=== PATIENT | female | born 1940 | race Caucasian/White ===

== ENCOUNTER 2021-11-05 11:27 | Outpatient (CLI) | payer MEDICARE, SELFPAY ==
[2021-11-05 17:48] LABS: Free T4 Free Thyroxine* 1.08 ng/dL (0.70-1.85)
== END 2021-11-05 11:28 | disposition home or self-care (01) ==
PROVIDERS: PCP Family Medicine; Visit Provider Family Medicine
DX: E03.9 Hypothyroidism, unspecified (principal); I10 Essential (primary) hypertension; E55.9 Vitamin D deficiency, unspecified
CPT/HCPCS: 84439; 84443

== ENCOUNTER 2022-03-10 22:28 | Outpatient (CLI) | payer MEDICARE, SELFPAY ==
--- OUTSIDE RECORDS SUMMARY | 2022-03-24 16:50 | XMS_ITS | Clinical Summary ---
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
== END 2022-03-10 22:29 | disposition home or self-care (01) ==
LOC: AMB 03-24 16:43
PROVIDERS: PCP Family Medicine; Visit Provider Family Medicine
DX: R42 Dizziness and giddiness (principal); R53.83 Other fatigue
CPT/HCPCS: A0425; A0427

== ENCOUNTER 2022-03-10 23:00 | Observation (INO) | payer MEDICARE, SELFPAY ==
[2022-03-10 23:12] VITALS: BP 156/74; PULSE 74; RESP 18; TEMP 35.9; O2SAT 98; BMI 23.4
--- NOTE | 2022-03-10 23:23 | ED_ITS ---
HPI - Nausea/Vomiting/Diarrhea General Time Seen by Provider: 23:23 <Blaire Knowles MD - Last Filed: 03/10/22 23:53> Date Seen: 03/10/22 <Blaire Knowles MD - Last Filed: 03/10/22 23:53> Chief complaint: Nausea/Vomiting <Blaire Knowles MD - Last Filed: 03/10/22 23:53> Stated complaint: Nausea, Vomiting <Blaire Knowles MD - Last Filed: 03/10/22 23:53> Time Seen by Provider: 03/10/22 23:23 <Blaire Knowles MD - Last Filed: 03/10/22 23:53> Source: patient, RN notes reviewed and old records reviewed <Blaire Knowles MD - Last Filed: 03/10/22 23:53> Mode of arrival: EMS <Blaire Knowles MD - Last Filed: 03/10/22 23:53> Limitations: no limitations <Blaire Knowles MD - Last Filed: 03/10/22 23:53> History of Present Illness HPI Narrative: Patient is a very pleasant 82-year-old female with a history of hypertension, hypothyroidism and COPD who comes to the emergency room via EMS after having experiences sudden onset of what she describes as dizziness at approximately 2000 hours. This was associated with nausea and vomiting P Patient notes that she has been dealing with illness since MondayMarch 05. At that time she has had been experiencing which she describes is a very bad stomach ache and her abdomen feeling like it was very firm and hard. She had no associated vomiting at that time She actually describes difficulty with her abdomen over many months where she felt like her belly was bigger than what it should be after having decreased her normal Synthroid intake. She states she feels like she has a basketball and she has never had that before. She does think she has gained some weight. She is now back to her normal dose of 100 mcg but her abdomen still feels like it is bigger than it should be. She actually knew notes that the stomach ache that she describes is very bad on 03 05 has actually improved. He notes that even when she would pass gas she had belly pain. She did not have any vomiting at that time nor did she diarrhea. She usually has constipation and takes MiraLax for that. She does note however that while her stomach was causing her problems whenever she would stand up she would experience what she describes as ?wooziness?. She notes that when she would stand she felt like she was near fainting. Sitting however was okay but moving increase this feeling. She notes that she took 2 Pepto-Bismol bottles over the past few days in her belly has much improved. However on Monday03/08/22 she began experiencing an infection in her left upper gum line. She has had this before and is requesting that we Pedrito this area. She is not experiencing any fever or chills. She was supposed to see the dentist tomorrow morning. Patient notes that tonight her wooziness was suddenly described as dizziness and the room was moving around her. Patient does describe vertigo. She notes no chest pain cough or shortness of breath during this time. She notes that she had in knew she would not be able to walk. She denies weakness in legs or arms but states because of the dizziness she asked her to call the ambulance. Patient currently takes 1 Cristi aspirin every 3 hours for discomfort. She quit using tobacco and alcohol 4 years ago. No recent trauma. <Blaire Knowles MD - Last Filed: 03/10/22 23:53> Associated nausea: Yes <Blaire Knowles MD - Last Filed: 03/10/22 23:53> Related Data Home medications: Previous Rx's Medication Instructions Recorded levothyroxine 100 mcg capsule 100 mcg PO .QOD #45 caps 11/10/21 <Blaire Knowles MD - Last Filed: 03/10/22 23:53> Allergies/Adverse reactions: Allergies Allergy/AdvReac Type Severity Reaction Status Date / Time No Known Allergies Allergy Verified 03/11/22 00:38 <Blaire Knowles MD - Last Filed: 03/10/22 23:53> Review of Systems Status of ROS: Reports: 10 or more systems reviewed and unremarkable except as noted in History and below <Blaire Knowles MD - Last Filed: 03/10/22 23:53> Const: Reports: change in weight (Possibly weight gain); Denies: fever, chills or fatigue <Blaire Knowles MD - Last Filed: 03/10/22 23:53> Eyes: Denies: blurry vision or seeing flashes <Blaire Knowles MD - Last Filed: 03/10/22 23:53> ENMT: Reports: mouth pain (Left upper gumline) and vertigo; Denies: throat pain, neck pain or difficulty swallowing <Blaire Knowles MD - Last Filed: 03/10/22 23:53> Cardio: Denies: chest pain or shortness of breath with exertion <Blaire Knowles MD - Last Filed: 03/10/22 23:53> Resp: Denies: shortness of breath or cough <Blaire Knowles MD - Last Filed: 03/10/22 23:53> GI: Reports: abdominal pain (Now improving), nausea, vomiting and constipation (Chronic); Denies: diarrhea or difficulty swallowing <Blaire Knowles MD - Last Filed: 03/10/22 23:53> : Denies: painful urination or urinary frequency <Blaire Knowles MD - Last Filed: 03/10/22 23:53> Musculo: Denies: back pain or neck pain <Blaire Knowles MD - Last Filed: 03/10/22 23:53> Integ/Breast: Denies: rash <Blaire Knowles MD - Last Filed: 03/10/22 23:53> Neuro: Reports: dizziness and vertigo; Denies: headache, numbness in extremities or weakness in extremities <Blaire Knowles MD - Last Filed: 03/10/22 23:53> Endo: Denies: fatigue <Blaire Knowles MD - Last Filed: 03/10/22 23:53> [facility]: Surgical History Status post appendectomy Status post cataract extraction Status post hysterectomy with oophorectomy <Blaire Knowles MD - Last Filed: 03/10/22 23:53> Social History: Social History Narrative: alcohol abuse Smoking Status: Former smoker What tobacco products do you use: cigarettes Smoking quit date/years: <= 15 years ago How often do you have a drink containing alcohol: never AUDIT-C Alcohol total score: 0 Non-prescribed substance use: denies use <Blaire Knowles MD - Last Filed: 03/10/22 23:53> Exam Narrative: Exam Narrative: Sole is a very pleasant elderly female in no acute distress. Her eyes are clear. Her pupils are small at 1 mm but EOM is full. Visual reynolds intact. Face is some symmetrical in terms of eyebrow raise smile. Speech is normal. She has increased fullness over the left of frontal sinus with some mild not we ll-demarcated erythema. Oral cavity shows moist mucous membranes. E superior gumline on the left shows some fluctuance that is tender to the touch. No current draining. Positive for left anterior cervical lymphadenopathy. Nontender. Heart with regular rate and rhythm and lungs are clear. Abdomen is soft there is some protrude parents but the belly is nontender. No masses palpated. Lower extremities without edema. Romberg is negative fine motor skills intact NIHSS scale 0 I did have patient sit up and she was able to do that but again became very symptomatic with room spinning and return of nausea. No nystagmus of the pupils. I was unable to do Hallpike maneuver given patient's significant symptoms just sitting up. <Blaire Knowles MD - Last Filed: 03/10/22 23:53> Const: Vital Signs, click to edit/add: Vital Signs - 24 hr 03/10/22 23:12 Temperature 96.6 F L Pulse Rate [Pulse Oximeter] 74 Respiratory Rate 18 Blood Pressure [Ri ght Upper Arm] 156/74 H Pulse Oximetry 98 Oxygen Delivery Me thod Room Air <Blaire Knowles MD - Last Filed: 03/10/22 23:53> Vital Signs, click to edit/add: Vital Signs - 24 hr 03/10/22 23:12 Temperature 96.6 F L Pulse Rate [Pulse Oximeter] 74 Respiratory Rate 18 Blood Pressure [Ri ght Upper Arm] 156/74 H Pulse Oximetry 98 Oxygen Delivery Me thod Room Air <Allen Jansen MD - Last Filed: 03/11/22 01:35> Documenting provider has reviewed patient's vital signs: yes <Blaire Knowles MD - Last Filed: 03/10/22 23:53> Course Course Hospital Course: Patient presents with a myriad of symptoms starting on 03/05/2022. Initially abdominal pain without fever or vomiting that started to improve. Patient then had the onset of upper gum swelling with what appears to be abscess and now this evening a sudden onset of vertigo associated with vomiting at 2000 hours. <Blaire Knowles MD - Last Filed: 03/10/22 23:53> Reevaluation(s) Reevaluation #1: Accepted in sign-out from Dr. Lake. Patient's primary complaint today is vertigo. Disposition when sitting up, no other neurologic deficits, no headache or head injury. CT scan of the head personally reviewed and interpreted by me does not demonstrate any acute intracranial pathology. Patient is given meclizine to help with symptoms. She also had some abdominal pain and bloating about a week ago that is now resolved. On exam she has no abdominal tenderness, no vomiting or diarrhea. Finally she does have some swelling of the upper gum with possible periapical abscess. <Allen Jansen MD - Last Filed: 03/11/22 01:35> Time: 00:36 <Allen Jansen MD - Last Filed: 03/11/22 01:35> Reevaluation #2: Incision and drainage of left upper periabscess with large amount of purulent drainage. Patient will be started on Zosyn in the emergency department. Labs reviewed, white blood cell count is normal, mild anemia, the basic panel reassuring, normal CRP. Will call hospitalist for admission. I personally reviewed the CT scan of the head which does not demonstrate any acute intracranial findings, personally reviewed CT scan of the facial bones which does not show any acute fracture, there is air and fluid along the left mandible consistent with the clinical abscess that is already been drained. <Allen Jansen MD - Last Filed: 03/11/22 01:35> Time: 00:59 <Allen Jansen MD - Last Filed: 03/11/22 01:35> Reevaluation #3: Patient recheck, dizziness is improved. She still has no resting dizziness, only when she sits up and she describes as room spinning accompanied by nausea. Due to continued positional vertigo, infected patient lives independently with her spouse, will be admitted for symptom management further evaluation. IV Zosyn was given for her periapical abscess. She was complaining of abdominal pain last week but that is resolved, abdomen without tenderness, LFTs, lipase, and white blood cell count are all within normal limits. No further evaluation at this time. <Allen Jansen MD - Last Filed: 03/11/22 01:35> Time: 01:24 <Allen Jansen MD - Last Filed: 03/11/22 01:35> Additional Reevaluation(s): 1:34 a.m. care discussed with [facility] for admission. <Allen Jansen MD - Last Filed: 03/11/22 01:35> Vital Signs Vital signs: Initial Vital Signs Temperature 96.6 F L 03/10/22 23:12 Temperature Source Temporal Artery Scan 03/10/22 23:12 Pulse Rate 74 03/10/22 23:12 Respiratory Rate 18 03/10/22 23:12 Blood Pressure 156/74 H 03/10/22 23:12 Blood Pressure Mean 101 03/10/22 23:12 Blood Pressure Position Semi-Fowlers 03/10/22 23:12 Pulse Oximetry 98 03/10/22 23:12 Oxygen Delivery Method 03/10/22 23:12 Vital Signs Temperature 96.6 F L 03/10/22 23:12 Pulse Rate 74 03/10/22 23:12 Respiratory Rate 18 03/10/22 23:12 Blood Pressure 156/74 H 03/10/22 23:12 Pulse Oximetry 98 03/10/22 23:12 Oxygen Delivery Method 03/10/22 23:12 Temperature 96.6 F L 03/10/22 23:12 Pulse Rate 74 03/10/22 23:12 Respiratory Rate 18 03/10/22 23:12 Blood Pressure 156/74 H 03/10/22 23:12 Pulse Oximetry 98 03/10/22 23:12 Oxygen Delivery Method 03/10/22 23:12 <Blaire Knowles MD - Last Filed: 03/10/22 23:53> Initial Vital Signs Temperature 96.6 F L 03/10/22 23:12 Temperature Source Temporal Artery Scan 03/10/22 23:12 Pulse Rate 74 03/10/22 23:12 Respiratory Rate 18 03/10/22 23:12 Blood Pressure 156/74 H 03/10/22 23:12 Blood Pressure Mean 101 03/10/22 23:12 Blood Pressure Position Semi-Fowlers 03/10/22 23:12 Pulse Oximetry 98 03/10/22 23:12 Oxygen Delivery Method 03/10/22 23:12 Vital Signs Temperature 96.6 F L 03/10/22 23:12 Pulse Rate 74 03/10/22 23:12 Respiratory Rate 18 03/10/22 23:12 Blood Pressure 156/74 H 03/10/22 23:12 Pulse Oximetry 98 03/10/22 23:12 Oxygen Delivery Method 03/10/22 23:12 Temperature 96.6 F L 03/10/22 23:12 Pulse Rate 74 03/10/22 23:12 Respiratory Rate 18 03/10/22 23:12 Blood Pressure 156/74 H 03/10/22 23:12 Pulse Oximetry 98 03/10/22 23:12 Oxygen Delivery Method 03/10/22 23:12 <Allen Jansen MD - Last Filed: 03/11/22 01:35> MDM - Nausea/Vomiting/Diarrhea MDM Narrative Medical decision making narrative: 1. Dental abscess 2. Vertigo 3. Abdominal pain 4. Disposition- <Blaire Knowles MD - Last Filed: 03/10/22 23:53> 1. Dental abscess 2. Vertigo <Allen Jansen MD - Last Filed: 03/11/22 01:35> Medical Records Attestation: I reviewed the patient's medical records. <Blaire Knowles MD - Last Filed: 03/10/22 23:53> Lab Data Attestation: I reviewed the patient's lab results. <Blaire Knowles MD - Last Filed: 03/10/22 23:53> Labs: Lab Results 03/10/22 03/10/22 03/10/22 Range/Units 23:49 23:49 23:49 WBC 7.95 (4.50-11.00) K/uL RBC 3.75 L (4.00-5.20) m/uL Hgb 11.2 L (12.0-16.0) gm/dL Hct 34.4 (33.0-51.0) % MCV 92 (80-100) fL MCH 30 (26-34) pg MCHC 33 (32-36) gm/dL RDW Coeff of Nida 14.2 (11.5-15.5) % Plt Count 341 (140-440) K/uL Neut % (Auto) 71.7 (42.0-72.0) % Lymph % (Auto) 16.5 L (20-44) % Harnett % (Auto) 7.7 (0.0-11.0) % Eos % (Auto) 3.4 (0.0-7.0) % Baso % (Auto) 0.4 (0.0-3.0) % Neut # (Auto) 5.71 (1.7-7.0) K/uL Lymph # (Auto) 1.30 (0.90-2.90) K/uL Harnett # (Auto) 0.60 (0.00-0.90) K/UL Eos # (Auto) 0.27 (0.00-0.50) K/uL Baso # (Auto) 0.03 (0.00-0.30) K/uL Abs Immat Gran (auto) 0.02 (0.00-0.30) K/uL Imm/Tot Granulo (auto) 0.3 % Sodium 142 (135-149) mmol/L Potassium 3.6 (3.6-5.1) mmol/L Chloride 111 (96-114) mmol/L Carbon Dioxide 23 (20-32) mmol/L BUN 13 (7-30) mg/dL Creatinine 0.9 (0.5-1.5) mg/dL Estimated Creat Clear 41.30 Estimated GFR 64 ml/min Glucose 103 (60-115) mg/dL Calcium 8.5 (8.4-10.6) mg/dL Magnesium 2.1 (1.5-2.6) mg/dL Total Bilirubin 0.3 (0.1-1.5) mg/dL AST 22 (12-35) U/L ALT 12 (4-35) U/L Alkaline Phosphatase 79 (40-150) U/L C-Reactive Protein 6.3 H (0.5-1.0) mg/dL Total Protein 6.9 (6.0-8.3) g/dL Albumin 3.5 (3.3-5.0) g/dL SARS-CoV-2 (PCR) (Negative) Influenza Type A (PCR) (Negative) Influenza Type B (PCR) (Negative) POC Troponin I 0.00 L (0.01-0.04) ng/ml 03/11/22 Range/Units 00:20 WBC (4.50-11.00) K/uL RBC (4.00-5.20) m/uL Hgb (12.0-16.0) gm/dL Hct (33.0-51.0) % MCV (80-100) fL MCH (26-34) pg MCHC (32-36) gm/dL RDW Coeff of Nida (11.5-15.5) % Plt Count (140-440) K/uL Neut % (Auto) (42.0-72.0) % Lymph % (Auto) (20-44) % Harnett % (Auto) (0.0-11.0) % Eos % (Auto) (0.0-7.0) % Baso % (Auto) (0.0-3.0) % Neut # (Auto) (1.7-7.0) K/uL Lymph # (Auto) (0.90-2.90) K/uL Harnett # (Auto) (0.00-0.90) K/UL Eos # (Auto) (0.00-0.50) K/uL Baso # (Auto) (0.00-0.30) K/uL Abs Immat Gran (auto) (0.00-0.30) K/uL Imm/Tot Granulo (auto) % Sodium (135-149) mmol/L Potassium (3.6-5.1) mmol/L Chloride (96-114) mmol/L Carbon Dioxide (20-32) mmol/L BUN (7-30) mg/dL Creatinine (0.5-1.5) mg/dL Estimated Creat Clear Estimated GFR ml/min Glucose (60-115) mg/dL Calcium (8.4-10.6) mg/dL Magnesium (1.5-2.6) mg/dL Total Bilirubin (0.1-1.5) mg/dL AST (12-35) U/L ALT (4-35) U/L Alkaline Phosphatase (40-150) U/L C-Reactive Protein (0.5-1.0) mg/dL Total Protein (6.0-8.3) g/dL Albumin (3.3-5.0) g/dL SARS-CoV-2 (PCR) Negative SARS-CoV-2 (Negative) Influenza Type A (PCR) Negative PCR FLU A (Negative) Influenza Type B (PCR) Negative PCR FLU B (Negative) POC Troponin I (0.01-0.04) ng/ml <Blaire Knowles MD - Last Filed: 03/10/22 23:53> Lab Results 03/10/22 03/10/22 03/10/22 Range/Units 23:49 23:49 23:49 WBC 7.95 (4.50-11.00) K/uL RBC 3.75 L (4.00-5.20) m/uL Hgb 11.2 L (12.0-16.0) gm/dL Hct 34.4 (33.0-51.0) % MCV 92 (80-100) fL MCH 30 (26-34) pg MCHC 33 (32-36) gm/dL RDW Coeff of Nida 14.2 (11.5-15.5) % Plt Count 341 (140-440) K/uL Neut % (Auto) 71.7 (42.0-72.0) % Lymph % (Auto) 16.5 L (20-44) % Harnett % (Auto) 7.7 (0.0-11.0) % Eos % (Auto) 3.4 (0.0-7.0) % Baso % (Auto) 0.4 (0.0-3.0) % Neut # (Auto) 5.71 (1.7-7.0) K/uL Lymph # (Auto) 1.30 (0.90-2.90) K/uL Harnett # (Auto) 0.60 (0.00-0.90) K/UL Eos # (Auto) 0.27 (0.00-0.50) K/uL Baso # (Auto) 0.03 (0.00-0.30) K/uL Abs Immat Gran (auto) 0.02 (0.00-0.30) K/uL Imm/Tot Granulo (auto) 0.3 % Sodium 142 (135-149) mmol/L Potassium 3.6 (3.6-5.1) mmol/L Chloride 111 (96-114) mmol/L Carbon Dioxide 23 (20-32) mmol/L BUN 13 (7-30) mg/dL Creatinine 0.9 (0.5-1.5) mg/dL Estimated Creat Clear 41.30 Estimated GFR 64 ml/min Glucose 103 (60-115) mg/dL Calcium 8.5 (8.4-10.6) mg/dL Magnesium 2.1 (1.5-2.6) mg/dL Total Bilirubin 0.3 (0.1-1.5) mg/dL AST 22 (12-35) U/L ALT 12 (4-35) U/L Alkaline Phosphatase 79 (40-150) U/L C-Reactive Protein 6.3 H (0.5-1.0) mg/dL Total Protein 6.9 (6.0-8.3) g/dL Albumin 3.5 (3.3-5.0) g/dL SARS-CoV-2 (PCR) (Negative) Influenza Type A (PCR) (Negative) Influenza Type B (PCR) (Negative) POC Troponin I 0.00 L (0.01-0.04) ng/ml 03/11/22 Range/Units 00:20 WBC (4.50-11.00) K/uL RBC (4.00-5.20) m/uL Hgb (12.0-16.0) gm/dL Hct (33.0-51.0) % MCV (80-100) fL MCH (26-34) pg MCHC (32-36) gm/dL RDW Coeff of Nida (11.5-15.5) % Plt Count (140-440) K/uL Neut % (Auto) (42.0-72.0) % Lymph % (Auto) (20-44) % Harnett % (Auto) (0.0-11.0) % Eos % (Auto) (0.0-7.0) % Baso % (Auto) (0.0-3.0) % Neut # (Auto) (1.7-7.0) K/uL Lymph # (Auto) (0.90-2.90) K/uL Harnett # (Auto) (0.00-0.90) K/UL Eos # (Auto) (0.00-0.50) K/uL Baso # (Auto) (0.00-0.30) K/uL Abs Immat Gran (auto) (0.00-0.30) K/uL Imm/Tot Granulo (auto) % Sodium (135-149) mmol/L Potassium (3.6-5.1) mmol/L Chloride (96-114) mmol/L Carbon Dioxide (20-32) mmol/L BUN (7-30) mg/dL Creatinine (0.5-1.5) mg/dL Estimated Creat Clear Estimated GFR ml/min Glucose (60-115) mg/dL Calcium (8.4-10.6) mg/dL Magnesium (1.5-2.6) mg/dL Total Bilirubin (0.1-1.5) mg/dL AST (12-35) U/L ALT (4-35) U/L Alkaline Phosphatase (40-150) U/L C-Reactive Protein (0.5-1.0) mg/dL Total Protein (6.0-8.3) g/dL Albumin (3.3-5.0) g/dL SARS-CoV-2 (PCR) Negative SARS-CoV-2 (Negative) Influenza Type A (PCR) Negative PCR FLU A (Negative) Influenza Type B (PCR) Negative PCR FLU B (Negative) POC Troponin I (0.01-0.04) ng/ml <Allen Jansen MD - Last Filed: 03/11/22 01:35> Imaging Data CT scan - head: Attestation: I have reviewed the pertinent imaging results. <Allen Jansen MD - Last Filed: 03/11/22 01:35> My impression: No acute intracranial findings, air-fluid level of the left anterior maxilla concerning for abscess <Allen Jansen MD - Last Filed: 03/11/22 01:35> Radiologist's impression: IMPRESSION: 1. No acute intracranial findings. 2. Cortical disruption of the left anterior maxilla adjacent to periapical thickening of a small portion of a residual tooth. There is a small amount of air and fluid lateral to the maxilla. This could represent a small abscess. Recommend CT face with IV contrast for further evaluation. <Allen Jansen MD - Last Filed: 03/11/22 01:35> ECG Data Attestation: I personally reviewed and interpreted this ECG as follows: <Allen Jansen MD - Last Filed: 03/11/22 01:35> ECG interpretation date: 03/11/22 <Allen Jansen MD - Last Filed: 03/11/22 01:35> ECG interpretation time: 00:20 <Allen Jansen MD - Last Filed: 03/11/22 01:35> Prior ECG tracings: not available for review <Allen Jansen MD - Last Filed: 03/11/22 01:35> Interpretation: Sinus rhythm rate 84, incomplete right bundle-branch block, no acute ST elevations or depressions, normal intervals, normal axis, HI 150. No prior for comparison. <Allen Jansen MD - Last Filed: 03/11/22 01:35> Discharge Plan Discharge Clinical Impression: Abscess, periapical, Vertigo, Chronic obstructive pulmonary disease <Blaire Knowles MD - Last Filed: 03/10/22 23:53> Patient Disposition: Admitted As Inpatient <Blaire Knowles MD - Last Filed: 03/10/22 23:53> Procedures I/D Type: abscess Details: simple <Allen Jansen MD - Last Filed: 03/11/22 01:35> Site: other (Periapical) <Allen Jansen MD - Last Filed: 03/11/22 01:35> Pre procedure diagnosis: Periapical abscess tooth 12. <Allen Jansen MD - Last Filed: 03/11/22 01:35> Post procedure diagnosis: Same <Allen Jansen MD - Last Filed: 03/11/22 01:35> Site marking: not applicable <Allen Jansen MD - Last Filed: 03/11/22 01:35> Verification/time out: correct patient and correct site <Allen Jansen MD - Last Filed: 03/11/22 01:35> Name of person performing procedure: Allen Jansen <Allen Jansen MD - Last Filed: 03/11/22 01:35> Local Anesthetic: lidocaine 1% and with epi <Allen Jansen MD - Last Filed: 03/11/22 01:35> Amount of anesthesia used (mL): 1 <Allen Jansen MD - Last Filed: 03/11/22 01:35> Technique: incised with #11 blade (Large amount of purulent drainage expressed) <Allen Jansen MD - Last Filed: 03/11/22 01:35> Irrigation: No <Allen Jansen MD - Last Filed: 03/11/22 01:35> Packing used?: none <Allen Jansen MD - Last Filed: 03/11/22 01:35> Estimated blood loss (if any): none <Allen Jansen MD - Last Filed: 03/11/22 01:35> Conclusion: patient tolerated procedure (Immediate improvement in her facial pain) <Allen Jansen MD - Last Filed: 03/11/22 01:35>
--- NOTE | 2022-03-10 23:40 | CRLHL7_ITS ---
For Patients: As a result of the Cures Act, medical imaging exams and procedure reports are released immediately into your electronic medical record. You may view this report before your referring provider. If you have questions, please contact your health care provider. INDICATION: Left upper gum swelling and dizziness TECHNIQUE: CT maxillofacial without contrast. COMPARISON: None FINDINGS: Facial bones: There is periapical lucency involving teeth 20. 5, 27 23, 22, and 20. There is mandibular erosion involving the 3 left teeth with periapical lucencies. Adjacent to tooth 20., There is a small amount of fluid and air. Orbits and globes: Unremarkable. Sinuses: Near complete opacification and wall thickening of the right maxillary sinus. Mucosal thickening of the left maxillary sinus. Soft tissues: Unremarkable. IMPRESSION: Several sites of periapical lucency involving the mandible. Cortical erosion of the mandible involving residual portion of tooth 20. With a small amount of adjacent air and fluid. This could represent an abscess. Recommend CT face with IV contrast for further evaluation. Please note that all CT scans at this facility use dose modulation, iterative reconstruction, and/or weight-based dosing when appropriate to reduce radiation dose to as low as reasonably achievable. Dictated by Ketty White MD @ 03/11/2022 1:12:19 AM (Electronically Signed)
--- NOTE | 2022-03-10 23:40 | CRLHL7_ITS ---
For Patients: As a result of the Century Cures Act, medical imaging exams and procedure reports are released immediately into your electronic medical record. You may view this report before your referring provider. If you have questions, please contact your health care provider. INDICATION: Left upper gum swelling, dizziness TECHNIQUE: Head CT without contrast. COMPARISON: July 02, 2018 FINDINGS: CSF spaces: Within normal limits for age. Brain parenchyma: There are nonspecific low attenuation white matter changes consistent with chronic microvascular disease. No sign of mass, hemorrhage, or midline shift. Skull base and calvarium: Mucosal thickening of the left maxillary sinus. Wall thickening and near complete opacification of the right maxillary sinus. The mastoid air cells demonstrate no acute or significant findings. The visualized orbits are grossly unremarkable. No skull fractures. There is intracranial atherosclerosis. A portion of the left upper anterior tooth is visualized. There is periapical lucency with cortical destruction the external wall of the maxilla. There is a small amount of adjacent fluid and bubbles of gas. IMPRESSION: 1. No acute intracranial findings. 2. Cortical disruption of the left anterior maxilla adjacent to periapical thickening of a small portion of a residual tooth. There is a small amount of air and fluid lateral to the maxilla. This could represent a small abscess. Recommend CT face with IV contrast for further evaluation. Please note that all CT scans at this facility use dose modulation, iterative reconstruction, and/or weight-based dosing when appropriate to reduce radiation dose to as low as reasonably achievable. Dictated by Ketty White MD @ 03/11/2022 1:07:49 AM (Electronically Signed)
--- OUTSIDE RECORDS SUMMARY | 2022-03-10 23:54 | XMS_ITS | Clinical Summary ---
:1940 Author Organization [employer] [facility] [facility] [place] [address] Care Team Providers Name Role Phone Jarrod Carlos MD Primary Care Provider Allergies No known active allergies Medications Medication Sig Dispensed Refills Start Date End Date Status cholecalciferol (VITAMIN Take 1 capsule 0 03/23/2010 Active D) 1,000 unit capsule by mouth once daily. levothyroxine Take 1 tablet by 90 tablet 0 11/02/2016 Active (SYNTHROID) 88 mcg mouth once tabletIndications: daily. Acquired hypothyroidism Active Problems Problem Noted Date Unspecified hypothyroidism 10/20/2009 Vitamin D deficiency 10/20/2009 Other and unspecified hyperlipidemia 10/16/2009 Tobacco abuse 10/16/2009 Routine health maintenance 10/16/2009 Overview: Last cpx-06/24 Last breast exam-06/24 HYST Last mammogram-07/24 Last lipid-05/25,LDL-144 Last colonoscopy-11/16 Immunizations Name Administration Dates Next Due Pneumococcal Poly,23-Valent (Pneumovax) 07/03/2012 Pneumococcal conj 13-Valent (Prevnar 13) 08/19/2015 Td (Age >=7 Years) 03/09/2009, 07/27/1998 Family History Medical History Relation Name Comments Good Health Brother Diabetes Father Hypertension Mother old age Good Health Sister Relation Name Status Comments Brother Father Mother Sister Social History Tobacco Use Types Packs/Day Years Used Date Current Every Day Smoker Cigarettes 1.5 Smokeless Tobacco: Never Used Tobacco Cessation: Counseling Given: Yes Alcohol Use Standard Drinks/Week Comments Yes 0 (1 standard drink = 0.6 oz pure alcoho l) Sex Assigned at Date Recorded Not on file Obstetrics History Last Filed Vital Signs Vital Sign Reading Time Taken Comments Blood Pressure 152/94 08/19/2015 1:06 PM CDT Pulse 100 08/19/2015 1:06 PM CDT Temperature 36.9 ??C (98.5 ??F) 11/11/2014 1:26 PM CDT Respiratory Rate - - Oxygen Saturation - - Inhaled Oxygen Concentration - - Weight 60.3 kg (133 lb) 08/19/2015 1:04 PM CDT Height 166.4 cm (5' 5.5) 08/19/2015 1:04 PM CDT Body Mass Index 21.8 08/19/2015 1:04 PM CDT Plan of Treatment Health Maintenance Due Date Last Done Comments COVID-19 vaccine series (#1) 1940 Tdap 02[birth year]28/1951 Zoster (shingles) series for age 50+ (1 of 1991 2) DEXA/DXA scan for age 65+ 2006 BMI (ht and wt on same day) for age 18+ 08/18/2016 08/19/19 16 Depression screening for age 12+ 08/18/2016 08/19/2015 Tetanus booster 03/09/2019 03/09/2009, 07/27/1998 Influenza for age 65+ 12/16/2021 Pneumococcal series for age 65+ Completed 08/19/2015, 06/15 Results Not on filefrom Last 3 Months Insurance Payer Benefit Plan / Subscriber ID Effective Dates Phone Addre ss Type Group MEDICARE PART B MEDICARE PART B [id number] 2006-Presen ATTN: CLAIMS - HB USE ONLY HB ONLY t [address] [place] [address] BLUE [employer] MR RIKKI CROSS [id number] 2013-Present [address] [address] [employer] [place], [place] ONLY [id number] [employer] BL[employer]OSS [id number] 2014-Present [address] [address] [employer] [place], [place] ONLY [id number] Advance Directives Documents on File Type Date Recorded Patient First Crusher Explanati on Healthcare Directive 11/11/2014 3:17 PM 5 Care Teams Human Resources Operations Director Relationship Specialty Start Date End Date Jarrod Carlos MD PCP - General Family Practice 09/21/16
[2022-03-11 00:19] LABS: Basophils Absolute Auto 0.03 K/uL (0.00-0.30); Basophils Percent Auto 0.4 % (0.0-3.0); Eosinophils Absolute Auto 0.27 K/uL (0.00-0.50); Eosinophils Percent Auto 3.4 % (0.0-7.0); Hematocrit 34.4 % (33.0-51.0); Hemoglobin* 11.2 gm/dL (12.0-16.0); Immature Granulocytes Abs Auto 0.02 K/uL (0.00-0.30); Immature Granulocytes Pct Auto 0.3 %; Lymphocytes Percent Auto 16.5 % (20-44); Mean Corpuscular HGB Conc 33 gm/dL (32-36); Mean Corpuscular Hemoglobin 30 pg (26-34); Mean Corpuscular Volume 92 fL (80-100); Monocytes Percent Auto 7.7 % (0.0-11.0); Neutrophils Absolute Auto 5.71 K/uL (1.7-7.0); Neutrophils Percent Auto 71.7 % (42.0-72.0); Platelet Count* 341 K/uL (140-440); RDW Coefficient of Variation % 14.2 % (11.5-15.5); Red Blood Count 3.75 m/uL (4.00-5.20); White Blood Count* 7.95 K/uL (4.50-11.00)
[2022-03-11 00:22] LABS: Albumin* 3.5 g/dL (3.3-5.0); Chloride* 111 mmol/L (96-114); Sodium* 142 mmol/L (135-149)
[2022-03-11 00:23] LABS: Potassium* 3.6 mmol/L (3.6-5.1)
[2022-03-11] MEDS: MECLIZINE HCL 25 MG TABLET PO (00:23)
[2022-03-11 00:24] LABS: Creatinine* 0.9 mg/dL (0.5-1.5); Estimated Glomerular Filt Rate 64 ml/min
[2022-03-11 00:25] LABS: Alanine Aminotransferase* 12 U/L (4-35); Alkaline Phosphatase* 79 U/L (40-150); Aspartate Amino Transferase* 22 U/L (12-35); Bilirubin Total* 0.3 mg/dL (0.1-1.5); Blood Urea Nitrogen* 13 mg/dL (7-30); Carbon Dioxide* 23 mmol/L (20-32); Total Protein* 6.9 g/dL (6.0-8.3)
[2022-03-11 00:26] LABS: Calcium* 8.5 mg/dL (8.4-10.6); Glucose* 103 mg/dL (60-115)
[2022-03-11 00:28] LABS: C Reactive Protein* 6.3 mg/dL (0.5-1.0)
[2022-03-11 00:34] LABS: Slide Review Reflex No
[2022-03-11 00:42] LABS: Magnesium* 2.1 mg/dL (1.5-2.6)
[2022-03-11] MEDS: PIPERACILLIN/TAZOBACTAM 3.375 GM in 0.9 % SODIUM CHLORIDE Mini-bag 100 ML IVPB ×4 (01:11→19:51)
[2022-03-11 01:18] LABS: PCR FLU A Negative PCR FLU A (Negative); PCR FLU B Negative PCR FLU B (Negative)
[2022-03-11 01:21] LABS: SARS PCR* Negative SARS-CoV-2 (Negative)
[2022-03-11 02:38] VITALS: BP 119/72; PULSE 88; RESP 18; TEMP 36.5; O2SAT 95; BMI 23.6
--- NOTE | 2022-03-11 05:14 | PC.NURSE ---
Admission note: Pt arrived at the unit on a bed accompanied by 2 staff from the ER at 0220. Pt was A/Ox3. Denied any pain, v/n, except dizziness. V/S checked on admission were WNL. Gamaliel assessment done 0400. Admission document signed and completed. Pt requested to keep personal items.
--- NOTE | 2022-03-11 05:31 | PM.EN ---
Chart Event Note Chart Event Note: Gamaliel Heard Hospitalist Consultation Sole Tavares date of 41 This patient is a 82-year-old female with past medical history hypothyroidism, vertigo, hypertension, COPD who presents with dizziness. The patient states that she has experienced dizziness since Monday, March 05 which she describes as the room spinning sudden onset associated with nausea and vomiting. She also had some abdominal pain this past Monday that has since resolved. In the ED CT of the head was unremarkable. The patient did experience some relief with meclizine. The patient did have a left side dental abscess drained in the ED Home Medications: see EMR Pertinent Medical History: See list above Pertinent Social History: Exam (performed via interactive video with assistance of bedside nurse): General: alert, cooperative, no acute distress HEENT: oral mucosa pink and moist without erythema Lungs: clear to auscultation bilaterally without crackle or wheeze CV: regular rate and rhythm without loud murmur rub or gallop Abd: denies tenderness and does not exhibit signs of pain with palpation done by bedside nurse Ext: no pitting edema noted Skin: no rashes, bruises or lesions appreciated on gross visualization of exposed skin Neuro: alert, oriented x 3. facial muscles grossly intact, moves all extremities without any significant focal deficit appreciated by nurse Assessment and Plan: Vertigo we will continue with meclizine as needed we will order PT OT to perform Xiomara maneuver if these measures do not work would then consider MRI of the brain and neurology consultation Left-sided dental abscess status post I&D in ED continue IV Zosyn for now and switch to p.o. antibiotic regimen on discharge Thank you for including Gamaliel Sharma in the patients care. This service is available for further assistance as requested by your care team by calling [phone].
[2022-03-11 06:33] LABS: Appearance Urine Clear (Clear); Bilirubin Urine Negative (Negative); Blood Urine Negative (Negative); Color Urine Yellow (Yellow); Glucose Urine Negative (Negative); Ketones Urine Negative (Negative); Leukocyte Esterase Urine Negative (Negative); Nitrite Urine Negative (Negative); Protein Urine Negative (Negative); Urobilinogen Urine 0.2 (0.2-1.0); pH Urine 5.5 (5.0-8.5)
[2022-03-11 06:52] LABS: RBC Urine 0-2 (0-2); WBC Urine 0-2 (0-5)
[2022-03-11] MEDS: 0.9 % SODIUM CHLORIDE 250 ml IV (06:57)
[2022-03-11 07:00] VITALS: BP 93/54; PULSE 68; RESP 18; TEMP 36.7; O2SAT 95
--- NOTE | 2022-03-11 07:07 | PM.IMHP1 ---
Hospitalist- H&P: HPI History of Present Illness Date Seen: 03/11/22 Chief complaint: Nausea, Vomiting Narrative: Sole Tavares is a 82 year old female who presented to the emergency room last night for dizziness by ambulance. She initially described the dizziness as acute onset, then noted have been related to an illness over the past week, which has included dizziness, upset stomach, and pain in her left upper tooth. ER course and findings: - found to have a left upper gum abscess, I&D performed in the emergency room and started on Zosyn - head CT reassuring for acute intracranial findings, dental abscess noted - mildly elevated TSH, normal T4 - hemoglobin 11.2 (12.20 June 2021) Past medical surgical and social history noted below. Sole has been to Tejinder for 62 years, they live independently in [place]. I spoke to Tejinder over the phone and he voices concerns about his 's balance and fall risk. Review of Systems Status of ROS: Reports: 10 or more systems reviewed and unremarkable except as noted in History and below Narrative: Sole notes intermittent back pain and headaches. She takes Cristi aspirin thrice daily at home on a regular basis. notes that patient's balance has been problematic for the past few weeks or so. He also notes that she has some memory impairment. [facility] Medical History (Updated 03/11/22 @ 15:55 by Stephani Hooper MD) Chronic obstructive pulmonary disease Compression fracture of lumbar vertebra Constipation Degeneration of intervertebral disc of lumbar region Diverticulosis of intestine Hearing loss of left ear Hypertension Hypothyroidism Osteoarthritis of lumbar spine Vitamin D deficiency Surgical History Status post appendectomy Status post cataract extraction Status post hysterectomy with oophorectomy Social History (Updated 03/11/22 @ 01:35 by Allen Jansen MD) Narrative: alcohol abuse Highest level of school completed/degree received: high school graduate Smoking Status: Former smoker What tobacco products do you use: cigarettes Smoking quit date/years: <= 15 years ago How often do you have a drink containing alcohol: never AUDIT-C Alcohol total score: 0 Non-prescribed substance use: denies use Caffeine: Yes (Coffee) service: No Meds Home Medications and Allergies Home Medications Medication Instructions Recorded Confirmed Type levothyroxine 100 mcg tablet 100 mcg PO Q48H 03/11/22 03/11/22 History Allergies Allergy/AdvReac Type Severity Reaction Status Date / Time No Known Allergies Allergy Verified 03/11/22 00:38 Exam Narrative: Exam Narrative: GEN: Alert HEENT: Normal external ears, PERRL and EOMIs bilaterally, no trismus. Dental abscess left upper anterior tooth, appears improved after I&D in the ED. No ttp over this region CV: RRR, No concerning murmurs, rubs, or gallops R: LCTA bilaterally without concerning wheezing, rales, or rhonchi Ext: wwp, no concerning edema Skin: No concerning skin lesions or rashes on exposed skin Neuro: Patient laying in bed, no facial asymmetry, no resting tremor, gait not observed Psych: Appropriate Const: Vital Signs, click to edit/add: Vital Signs - 24 hr 03/10/22 23:12 03/11/22 02:38 Temperature 96.6 F L 97.7 F Pulse Rate [Left P ulse Oximeter] 88 Pulse Rate [Pulse Oximeter] 74 Respiratory Rate 18 18 Blood Pressure [Ri ght Arm] 119/72 Blood Pressure [Ri ght Upper Arm] 156/74 H Pulse Oximetry 98 95 Oxygen Delivery Me thod Room Air Room Air Hospitalist - H&P: Result Labs Labs: Short CBC 03/10/22 Range/Units 23:49 WBC 7.95 (4.50-11.00) K/uL Hgb 11.2 L (12.0-16.0) gm/dL Hct 34.4 (33.0-51.0) % Plt Count 341 (140-440) K/uL BMP 03/10/22 23:49 Sodium 142 Potassium 3.6 Chloride 111 Carbon Dioxide 23 BUN 13 Creatinine 0.9 Glucose 103 Calcium 8.5 Liver Function 03/10/22 Range/Units 23:49 Total Bilirubin 0.3 (0.1-1.5) mg/dL AST 22 (12-35) U/L ALT 12 (4-35) U/L Alkaline Phosphatase 79 (40-150) U/L Albumin 3.5 (3.3-5.0) g/dL Urine 03/10/22 Range/Units 06:20 Urine Color Yellow (Yellow) Urine Appearance Clear (Clear) Urine pH 5.5 (5.0-8.5) Ur Specific [place] 1.010 (1.000-1.030) Urine Protein Negative (Negative) Urine Glucose (UA) Negative (Negative) Assessment and Plan Assessment and plan (1) Abscess, periapical: Problem comment: - I&D in the emergency room - continue Zosyn - patient refuses anything other than aspirin for pain management Status: Acute (2) Vertigo: Problem comment: - PT evaluation today for Daev-Hallpike maneuver - if ineffective, consider brain MRI Status: Acute (3) Memory changes: Problem comment: - OT evaluation for MOCA - may require increased services at home vs outpatient follow-up Status: Acute (4) Anemia: Problem comment: - mild, no evidence of acute bleeding - normal BUN - given recent abdominal pain and regular use of aspirin, will Hemoccult stools and follow symptoms closely Status: Acute Plan - per above - SCDs for prophylaxis
--- NOTE | 2022-03-11 10:35 | CRLHL7_ITS ---
For Patients: As a result of the Century Cures Act, medical imaging exams and procedure reports are released immediately into your electronic medical record. You may view this report before your referring provider. If you have questions, please contact your health care provider. INDICATION: Dizziness. TECHNIQUE: Multiplanar multisequence noncontrast MR images acquired through the brain. COMPARISON: CT brain 03/10/2022. FINDINGS: Prominence of the ventricles and sulci compatible with [id number] diffuse cerebral volume loss. No mass effect or midline shift. Patchy T2 FLAIR hyperintensities in the supratentorial white matter, typical for moderate chronic microvascular ischemic changes. No intracranial hemorrhage or pathologic extra-axial fluid collection. No diffusion restriction to suggest acute infarction. The major arterial flow voids of the skullbase are preserved. Thinning of the ocular lenses. Complete opacification of the right maxillary sinus. [id number] left maxillary sinus mucosal thickening. Small left and trace right mastoid effusions. IMPRESSION: 1. No acute infarction, mass effect, or intracranial hemorrhage. 2. Moderate chronic microvascular ischemic changes and [id number] diffuse cerebral volume loss. 3. Complete opacification of the right maxillary sinus. Dictated by Dayton Ferguson MD @ 03/11/2022 1:33:16 PM (Electronically Signed)
[2022-03-11] MEDS: ASPIRIN 81 MG TAB.CHEW PO ×2 (10:46→15:31)
[2022-03-11 11:00] VITALS: BP 119/69; PULSE 87; RESP 18; TEMP 36.8; O2SAT 97
[2022-03-11 14:45] VITALS: BP 122/76; PULSE 82; RESP 18; TEMP 36.7; O2SAT 94
[2022-03-11] MEDS: LEVOTHYROXINE 100 MCG TABLET PO (16:54)
[2022-03-11 19:00] VITALS: BP 105/68; PULSE 74; RESP 18; TEMP 37; O2SAT 96
--- NOTE | 2022-03-11 19:08 | PC.NURSE ---
Pt. alert and oriented, cooperative and pleasant. Pt. rated pain 5/10 for tooth. PRN Aspirin administered x2. Pt. refuses to take any other pain med for tooth pain. Pt. refused application of cardiac cath technician. Bilateral SCD's applied. IV 20 gauge in left AC patent. Pt. up w/assist of 1 and walker d/t unsteady gait from vertigo. Pt. [place], 97% on RA. VSS.
[2022-03-11] MEDS: SODIUM CHLORIDE 0.9 % (FLUSH) 10 ML SYRINGE 5 ML IVF (20:53)
[2022-03-11] MEDS: ACETAMINOPHEN 325 MG TABLET 650 MG PO (20:53)
[2022-03-11 23:00] VITALS: BP 112/63; PULSE 73; PULSE 74; RESP 16; TEMP 36.8; O2SAT 92
[2022-03-12] VITALS (7 sets, daily range): BP systolic 104–140; BP diastolic 62–90; PULSE 63–84; RESP 16; TEMP 36.6–36.7; O2SAT 93–98
[2022-03-12] MEDS: PIPERACILLIN/TAZOBACTAM 3.375 GM in 0.9 % SODIUM CHLORIDE Mini-bag 100 ML IVPB ×4 (01:15→18:32)
[2022-03-12] MEDS: SODIUM CHLORIDE 0.9 % (FLUSH) 10 ML SYRINGE 5 ML IVF ×3 (01:15→20:57)
[2022-03-12] MEDS: ACETAMINOPHEN 325 MG TABLET 650 MG PO ×6 (01:23→23:45)
[2022-03-12] MEDS: LEVOTHYROXINE 100 MCG TABLET PO (06:36)
[2022-03-12] MEDS: 0.9 % SODIUM CHLORIDE 250 ml IV (06:36)
--- NOTE | 2022-03-12 07:04 | PC.NURSE ---
[id number]: Patient pleasant and cooperative. Slept most of shift. Rates tooth pain 6-8/10. PRN Tylenol x3 and active ice for relief. SBA w/walker. Mildly NOME. Reports feeling fuzzy but better than the other day. Afebrile.
[2022-03-12 10:06] LABS: Basophils Absolute Auto 0.04 K/uL (0.00-0.30); Basophils Percent Auto 0.6 % (0.0-3.0); Eosinophils Absolute Auto 0.36 K/uL (0.00-0.50); Eosinophils Percent Auto 5.8 % (0.0-7.0); Hematocrit 36.9 % (33.0-51.0); Hemoglobin* 11.9 gm/dL (12.0-16.0); Lymphocytes Absolute Auto 1.83 K/uL (0.90-2.90); Lymphocytes Percent Auto 29.5 % (20-44); Mean Corpuscular HGB Conc 32 gm/dL (32-36); Mean Corpuscular Hemoglobin 30 pg (26-34); Mean Corpuscular Volume 93 fL (80-100); Monocytes Percent Auto 5.6 % (0.0-11.0); Neutrophils Absolute Auto 3.62 K/uL (1.7-7.0); Neutrophils Percent Auto 58.5 % (42.0-72.0); Platelet Count* 367 K/uL (140-440); RDW Coefficient of Variation % 14.6 % (11.5-15.5); Red Blood Count 3.95 m/uL (4.00-5.20)
[2022-03-12 10:24] LABS: Chloride* 108 mmol/L (96-114); Potassium* 4.4 mmol/L (3.6-5.1); Sodium* 142 mmol/L (135-149)
[2022-03-12 10:26] LABS: Creatinine* 0.9 mg/dL (0.5-1.5); Estimated Glomerular Filt Rate 64 ml/min
[2022-03-12 10:27] LABS: Blood Urea Nitrogen* 14 mg/dL (7-30); Calcium* 8.8 mg/dL (8.4-10.6); Carbon Dioxide* 25 mmol/L (20-32); Glucose* 106 mg/dL (60-115)
[2022-03-12 11:00] LABS: Slide Review Reflex No
--- NOTE | 2022-03-12 11:28 | P.IMPN_ITS ---
Progress Note: A&P Assessment and plan (1) Abscess, periapical: Problem details: - I&D in the emergency room - continue Zosyn - clinically improving with reassuring labs Status: Acute (2) Vertigo: Problem details: - no acute findings on brain MRI, Taft-Hallpike negative for BPPV - patient notices moderate improvement on hospital day 2 (query whether vertigo was related to acute illness vs stress) Status: Acute (3) Memory changes: Problem details: - MOCA 25/30 - may require increased services at home vs outpatient follow-up Status: Acute (4) Anemia: Problem details: - mild, no evidence of acute bleeding - normal BUN Status: Acute Plan - continue Zosyn for dental abscess - given stability, likely home tomorrow on oral antibiotics with close dental follow-up - recommend close PCP follow-up to discuss increased services at home for mild cognitive impairment - also recommend outpatient vision exam, as decreased vision seems to be contributing to symptoms - Tejinder updated by phone, questions answered Subjective Date Seen: 03/12/22 Interval history: Sole feels better today. Her PT evaluation was negative for BPPV, her MRI was reassuring. Her vertigo is significantly improved. She asks me if her vertigo could have been related to an acute stress reaction, as she had a stressful incident at home prior to ER presentation. She remains afebrile with reassuring white blood count, she is tolerating IV Zosyn. PT and OT have been seeing patient given her symptoms on admission and 's concern for MCI and fall risk. Exam Narrative: Exam Narrative: GEN: Alert HEENT: Normal external ears, EOMIs bilaterally, continues to have mild edema over left upper infected tooth, tolerates palpation of this region well, no crepitus CV: RRR, No concerning murmurs, rubs, or gallops R: LCTA bilaterally without concerning wheezing, rales, or rhonchi Ext: wwp, no concerning edema Skin: No concerning skin lesions or rashes on exposed skin Neuro: Sitting up in bed, no focal deficits, no resting tremor, gait not observed Psych: Appropriate Const: Vital Signs, click to edit/add: Vital Signs - 24 hr 03/11/22 14:45 03/11/22 14:45 03/11/22 19:00 Temperature 98.1 F 98.6 F Pulse Rate Pulse Rate [Left P ulse Oximeter] 82 82 74 Respiratory Rate 18 18 18 Blood Pressure [Ri ght Arm] 122/76 105/68 Pulse Oximetry 94 96 Oxygen Delivery Me thod Room Air Room Air 03/11/22 23:00 03/11/22 23:00 03/12/22 03:00 Temperature 98.2 F Pulse Rate 74 Pulse Rate [Left P ulse Oximeter] 73 63 Respiratory Rate 16 16 Blood Pressure [Ri ght Arm] 112/63 Pulse Oximetry 92 Oxygen Delivery Me thod Room Air 03/12/22 07:00 03/12/22 07:00 03/12/22 07:00 Temperature 98.1 F Pulse Rate 79 Pulse Rate [Left P ulse Oximeter] 69 69 Respiratory Rate 16 16 Blood Pressure [Ri ght Arm] 108/62 Pulse Oximetry 94 Oxygen Delivery Me thod Room Air Labs Labs: Laboratory Results - last 24 hr 03/12/22 03/12/22 10:00 10:00 WBC 6.20 RBC 3.95 L Hgb 11.9 L Hct 36.9 MCV 93 MCH 30 MCHC 32 RDW Coeff of Nida 14.6 Plt Count 367 Neut % (Auto) 58.5 Lymph % (Auto) 29.5 [place] % (Auto) 5.6 Eos % (Auto) 5.8 Baso % (Auto) 0.6 Neut # (Auto) 3.62 Lymph # (Auto) 1.83 [place] # (Auto) 0.30 Eos # (Auto) 0.36 Baso # (Auto) 0.04 Abs Immat Gran (auto) 0.00 Imm/Tot Granulo (auto) 0.0 Sodium 142 Potassium 4.4 Chloride 108 Carbon Dioxide 25 BUN 14 Creatinine 0.9 Estimated Creat Clear 41.30 Estimated GFR 64 Glucose 106 Calcium 8.8
[2022-03-12] MEDS: DOCUSATE SODIUM 100 MG CAPSULE PO (15:03)
--- NOTE | 2022-03-12 19:33 | PC.NURSE ---
?Pt. pleasant and cooperative, alert and oriented. Pt. up in bed most of shift for meals, ambulated to BR independently in room and tolerated activity well.?Pt. Rates tooth pain 6-11/24.? PRN Tylenol x3 and active ice for relief see eMAR. Pt. is [place].? Reports feeling fuzzy but better than the other day.?Afebrile this shift.
[2022-03-12] MEDS: ASPIRIN 81 MG TAB.CHEW PO (20:56)
[2022-03-13] MEDS: PIPERACILLIN/TAZOBACTAM 3.375 GM in 0.9 % SODIUM CHLORIDE Mini-bag 100 ML IVPB ×2 (00:54→06:48)
[2022-03-13 03:00] VITALS: PULSE 70; RESP 16
[2022-03-13 04:12] VITALS: BP 152/83; PULSE 74; RESP 16; TEMP 36.6; O2SAT 94
--- NOTE | 2022-03-13 04:48 | PC.NURSE ---
[id number]: patient up SBA, no c/o dizziness/vertigo symptoms. continues to have pain in tooth and occasionally back, see EMAR for meds given. appears to have slept majority of the night
[2022-03-13] MEDS: ACETAMINOPHEN 325 MG TABLET 650 MG PO (05:27)
[2022-03-13] MEDS: LEVOTHYROXINE 100 MCG TABLET PO (06:49)
[2022-03-13] MEDS: 0.9 % SODIUM CHLORIDE 250 ml IV (06:49)
[2022-03-13 06:57] LABS: Basophils Absolute Auto 0.04 K/uL (0.00-0.30); Basophils Percent Auto 0.7 % (0.0-3.0); Eosinophils Absolute Auto 0.29 K/uL (0.00-0.50); Eosinophils Percent Auto 5.2 % (0.0-7.0); Hematocrit 33.7 % (33.0-51.0); Hemoglobin* 10.9 gm/dL (12.0-16.0); Lymphocytes Absolute Auto 1.72 K/uL (0.90-2.90); Lymphocytes Percent Auto 30.9 % (20-44); Mean Corpuscular HGB Conc 32 gm/dL (32-36); Mean Corpuscular Hemoglobin 30 pg (26-34); Mean Corpuscular Volume 93 fL (80-100); Monocytes Percent Auto 9.3 % (0.0-11.0); Neutrophils Percent Auto 53.9 % (42.0-72.0); Platelet Count* 368 K/uL (140-440); RDW Coefficient of Variation % 14.6 % (11.5-15.5); Red Blood Count 3.62 m/uL (4.00-5.20); White Blood Count* 5.57 K/uL (4.50-11.00)
[2022-03-13 07:00] VITALS: BP 138/81; PULSE 49; PULSE 64; RESP 18; TEMP 36.9; O2SAT 94
[2022-03-13 07:00] LABS: Slide Review Reflex No
[2022-03-13 07:17] LABS: Chloride* 109 mmol/L (96-114); Potassium* 3.9 mmol/L (3.6-5.1); Sodium* 140 mmol/L (135-149)
[2022-03-13 07:19] LABS: Creatinine* 0.9 mg/dL (0.5-1.5); Estimated Glomerular Filt Rate 64 ml/min
[2022-03-13 07:20] LABS: Blood Urea Nitrogen* 11 mg/dL (7-30); Calcium* 8.2 mg/dL (8.4-10.6); Carbon Dioxide* 28 mmol/L (20-32); Glucose* 71 mg/dL (60-115)
[2022-03-13 07:23] LABS: C Reactive Protein* 3.3 mg/dL (0.5-1.0)
--- NOTE | 2022-03-13 08:07 | PM.DS1 ---
DS: Providers Provider Date Seen: 03/13/22 Date of admission: 03/11/22 02:06 Primary care physician: Jarrod Carlos MD Admitting Clinician: Allen Jansen MD Consults: PT and OT Attending Physician on discharge: Stephani Hooper MD Date of Discharge: 03/13/22 DS: Diagnosis Discharge Diagnosis (1) Vertigo: Status: Acute Problem details: - no acute findings on brain MRI, Hudson-Hallpike negative for BPPV - patient notices moderate to marked improvement on hospital day 2 (query whether vertigo was related to acute illness vs stress) (2) Abscess, periapical: Status: Acute Problem details: - I&D in the emergency room - IV Zosyn initiated on admission - clinically improved during stay with reassuring labs (3) Anemia: Status: Acute Problem details: - normocytic, mild, no evidence of acute bleeding - normal BUN (4) Memory changes: Status: Acute Problem details: - MOCA - may require increased services at home vs outpatient follow-up DS: Summary Hospital Course Hospital Course: Pleasant 82-year-old female, admitted to the hospital with acute onset of vertigo, incidentally found to have a left periapical abscess. Patient's abscess was I indeed in the emergency department and she was treated with IV Zosyn during stay. She remained hemodynamically stable, afebrile, and had minimal pain. She was seen by PT for her vertigo, symptoms not consistent with BPPV. MRI obtained which exhibited no acute findings. Patient improved throughout stay, was noted to have decreased vision and outpatient eye exam recommended, in addition to outpatient dental follow-up. notes that patient has had some memory impairment, MOCA was performed with results noted above. Consider outpatient follow-up for memory impairment. Patient was significantly improved on hospital day 2, comfortable discharging home with . Recommend outpatient follow-up with dentist, PCP, eye doctor within the next week. Patient and verbalized understanding. Status at Discharge Functional status at discharge: uses cane/walker Overall status at discharge: patient is progressing back to baseline Time Spent with Patient Time attestation: Total time spent providing and/or coordinating discharge services: Time spent: Greater than 30 minutes Specific discharge activities: Family updates, medication reconciliation, new prescriptions Exam Narrative: Exam Narrative: GEN: Alert and oriented, sitting comfortably in bed and answering questions appropriately HEENT: Normal external ears, EOMIs bilaterally, abscess of left anterior gingiva is improved, no tenderness to palpation, no facial swelling CV: RRR, No concerning murmurs, rubs, or gallops R: LCTA bilaterally without concerning wheezing, rales, or rhonchi Ext: wwp, no concerning edema Skin: No concerning skin lesions or rashes on exposed skin Neuro: Nonfocal Psych: Appropriate Const: Vital Signs, click to edit/add: Vital Signs - 24 hr 03/12/22 11:00 03/12/22 15:00 03/12/22 15:00 Temperature 98.0 F 98.0 F Pulse Rate Pulse Rate [Left P ulse Oximeter] 75 75 75 Pulse Rate [Pulse Oximeter] Respiratory Rate 16 16 16 Blood Pressure [Ri ght Arm] 104/66 118/70 Pulse Oximetry 93 95 Oxygen Delivery Wy thod Room Air Room Air 03/12/22 15:00 03/12/22 19:00 03/12/22 21:37 Temperature 97.9 F Pulse Rate 84 71 Pulse Rate [Left P ulse Oximeter] 73 Pulse Rate [Pulse Oximeter] Respiratory Rate 16 Blood Pressure [Ri ght Arm] 135/90 H Pulse Oximetry 98 Oxygen Delivery Wy thod Room Air 03/12/22 23:00 03/12/22 23:00 03/13/22 03:00 Temperature 97.9 F Pulse Rate Pulse Rate [Left P ulse Oximeter] 70 71 Pulse Rate [Pulse Oximeter] 70 Respiratory Rate 16 16 16 Blood Pressure [Ri ght Arm] 140/78 H Pulse Oximetry 97 Oxygen Delivery Wy thod Room Air 03/13/22 04:12 Temperature 97.8 F Pulse Rate Pulse Rate [Left P ulse Oximeter] Pulse Rate [Pulse Oximeter] 74 Respiratory Rate 16 Blood Pressure [Ri ght Arm] 152/83 H Pulse Oximetry 94 Oxygen Delivery Wy thod Room Air DS: Data Data Completed and Pending Labs on day of discharge: Labs from last 24 hours 03/13/22 03/13/22 03/12/22 06:21 06:21 10:00 WBC 5.57 RBC 3.62 L Hgb 10.9 L Hct 33.7 MCV 93 MCH 30 MCHC 32 RDW Coeff of Nida 14.6 Plt Count 368 Neut % (Auto) 53.9 Lymph % (Auto) 30.9 [place] % (Auto) 9.3 Eos % (Auto) 5.2 Baso % (Auto) 0.7 Neut # (Auto) 3.00 Lymph # (Auto) 1.72 [place] # (Auto) 0.50 Eos # (Auto) 0.29 Baso # (Auto) 0.04 Abs Immat Gran (auto) 0.00 Imm/Tot Granulo (auto) 0.0 Sodium 140 142 Potassium 3.9 4.4 Chloride 109 108 Carbon Dioxide 28 25 BUN 11 14 Creatinine 0.9 0.9 Estimated Creat Clear 41.30 41.30 Estimated GFR 64 64 Glucose 71 106 Calcium 8.2 L 8.8 C-Reactive Protein 3.3 H 03/12/22 10:00 WBC 6.20 RBC 3.95 L Hgb 11.9 L Hct 36.9 MCV 93 MCH 30 MCHC 32 RDW Coeff of Nida 14.6 Plt Count 367 Neut % (Auto) 58.5 Lymph % (Auto) 29.5 [place] % (Auto) 5.6 Eos % (Auto) 5.8 Baso % (Auto) 0.6 Neut # (Auto) 3.62 Lymph # (Auto) 1.83 [place] # (Auto) 0.30 Eos # (Auto) 0.36 Baso # (Auto) 0.04 Abs Immat Gran (auto) 0.00 Imm/Tot Granulo (auto) 0.0 Sodium Potassium Chloride Carbon Dioxide BUN Creatinine Estimated Creat Clear Estimated GFR Glucose Calcium C-Reactive Protein Discharge Plan Discharge Disposition: Home, Self-Care Date of Admission: 03/11/22 02:06 Attending Provider on Discharge: Stephani Hooper Primary Care Provider: Jarrod Carlos Condition: Improved Anticipated Discharge Date/Time: 03/13/22 10:00 Discharge Medications: New amoxicillin-pot clavulanate [Augmentin] 500-125 mg tablet 1 tab PO Q8H Qty: 15 0RF metronidazole 500 mg tablet 500 mg PO Q8H Qty: 15 0RF Continued levothyroxine [Levo-T] 100 mcg tablet 100 mcg PO DAILY Rx Instructions: PATIENT NO LONGER TAKING TWO STRENGTHS ON ALTERNATING DAYS. Discharge Orders: Discharge Order (Routine); Ordered 03/13/22 Ordered By: Stephani Hooper Patient Education: Metronidazole (By mouth), Amoxicillin/Clavulanate Potassium (By mouth), Dental Abscess (GEN) Additional Instructions: Take antibiotics three times/day with food, see your dentist next week for a recheck. I also think you should have your eyes checked in the next few weeks. You can take 2 Tylenol every 8-12 hours for pain, I would try to limit your aspirin back and body to 1-2 times/day (too much aspirin can be hard on your stomach and increase your risk of bleeding) Activity Level: Activity as Tolerated and No strenuous activity Discharge Diet: Regular Follow Up Appointments: Jarrod Carlos MD [Primary Care Provider] - 03/21/22 9:45 am Forms: [employer] Info Instructions
[2022-03-13 08:32] VITALS: PULSE 71; RESP 16; TEMP 36.6
--- NOTE | 2022-03-13 11:47 | PC.NURSE ---
shift note: vss stable. pt afeb. pt states pain and swelling on lt side of mouth much improved from admit. Pt tolerating soft diet. IV dc'd intact. Reviewed dc instructions and copies sent with pt at dc. Reviewed belongings and sent with pt at dc. Pt recounted cards and money prior to dc.
== END 2022-03-13 10:00 | disposition home or self-care (01) ==
LOC: ED 03-11 01:26 → MEDSURG 03-11 02:06
PROVIDERS: Family Medicine; Admitting Provider Family Medicine; Emergency Provider Family Medicine; PCP Family Medicine; Visit Provider Family Medicine
DX: K04.7 Periapical abscess without sinus (principal); R42 Dizziness and giddiness; J44.9 Chronic obstructive pulmonary disease, unspecified; D64.9 Anemia, unspecified; G31.84 Mild cognitive impairment of uncertain or unknown etiology; Z87.891 Personal history of nicotine dependence; R94.6 Abnormal results of thyroid function studies; Z79.82 Long term (current) use of aspirin
CPT/HCPCS: 10060; 36415; 41800; 70450; 70486; 70551; 80048; 80053; 81001; 83735; 85025; 86140; 87631; 93005; 96365; 96366; 96375; 97110; 97112; 97116; 97161; 97165; 97535; 99284; 99285; G0378; A9270; G0379; J2543; J7050

== ENCOUNTER 2022-09-06 20:10 | Emergency (ER) | payer MEDICARE, SELFPAY ==
[2022-09-06 20:16] VITALS: BP 153/90; PULSE 97; RESP 18; TEMP 36.2; O2SAT 99
--- NOTE | 2022-09-06 20:23 | ED_ITS ---
HPI - General Adult General Time Seen by Provider: 20:23 Date Seen: 09/06/22 Chief complaint: Bug Bite Stated complaint: Swelling Post Tick Bites Time Seen by Provider: 09/06/22 20:19 Source: patient, RN notes reviewed and old records reviewed Mode of arrival: ambulatory Limitations: no limitations History of Present Illness HPI narrative: 82-year-old female who comes in today with lower leg redness and swelling after a bug bite. She had a tick on her leg several days ago which she removed. She has been washing the area with hydrogen peroxide bedside increasing redness in the area and swelling of the ankle and foot. Minimal pain, no fevers, nausea, or vomiting. Otherwise feels well. Related Data Previous Rx's Medication Instructions Recorded levothyroxine 100 mcg tablet 100 mcg PO DAILY #90 tabs 03/21/22 (Levo-T) celecoxib 200 mg capsule 200 mg PO QDAY #30 caps 06/17/22 Allergies Allergy/AdvReac Type Severity Reaction Status Date / Time No Known Allergies Allergy Verified 06/17/22 10:31 Review of Systems Status of ROS: Reports: 10 or more systems reviewed and unremarkable except as noted in History and below [facility] Medical History Abscess, periapical Compression fracture of lumbar vertebra Tobacco abuse Surgical History Status post appendectomy Status post cataract extraction Status post hysterectomy with oophorectomy Social History Narrative: alcohol abuse Highest level of school completed/degree received: high school graduate Smoking Status: Former smoker What tobacco products do you use: cigarettes Smoking quit date/years: <= 15 years ago How often do you have a drink containing alcohol: never AUDIT-C Alcohol total score: 0 Non-prescribed substance use: denies use Caffeine: Yes (Coffee) Little interest or pleasure in doing things: several days Feeling down, depressed, or hopeless: several days service: No Exam Narrative: Exam Narrative: General: well nourished , NAD Head: Atraumatic and normocephalic ENT: External ears and external nose are normal Eyes: Conjunctiva clear, pupils are equal reactive, external ocular motions are intact Neck: Full spontaneous range of motion of the neck Lungs: No respiratory distress Musculoskeletal: No tenderness or deformity Neurologic: No gross focal neurologic deficits Skin: Right anterior medial lower leg superficial abrasion with surrounding erythema and edema of the ankle and foot. No redness or warmth of the ankle, no joint effusion, no pain with passive movement. Psych: Mood and affect are appropriate Const: Vital Signs, click to edit/add: Vital Signs - 24 hr 09/06/22 20:16 Temperature 97.2 F L Pulse Rate [Left P ulse Oximeter] 97 Respiratory Rate 18 Blood Pressure [Ri ght Upper Arm] 153/90 H Pulse Oximetry 99 Oxygen Delivery Me thod Room Air Course Course Hospital Course: Patient seen examined, prior records reviewed. Patient presents today with redness and swelling of the right anterior lower leg after a bug bite. On exam, this area is erythematous and warm with minimal induration. No fluid collection. There is some dependent edema tracking to the ankle and foot but no evidence for septic arthritis or crystal arthropathy. Symptoms are most consistent with cellulitis, patient will be started on antibiotics and discharged. Vital Signs Vital signs: Initial Vital Signs Temperature 97.2 F L 09/06/22 20:16 Temperature Source Temporal Artery Scan 09/06/22 20:16 Pulse Rate 97 09/06/22 20:16 Pulse Rhythm Regular 09/06/22 20:16 Respiratory Rate 18 09/06/22 20:16 Blood Pressure 153/90 H 09/06/22 20:16 Blood Pressure Mean 111 H 09/06/22 20:16 Blood Pressure Position Sitting 09/06/22 20:16 Pulse Oximetry 99 09/06/22 20:16 Oxygen Delivery Method Room Air 09/06/22 20:16 Vital Signs Temperature 97.2 F L 09/06/22 20:16 Pulse Rate 97 09/06/22 20:16 Respiratory Rate 18 09/06/22 20:16 Blood Pressure 153/90 H 09/06/22 20:16 Pulse Oximetry 99 09/06/22 20:16 Oxygen Delivery Method Room Air 09/06/22 20:16 Temperature 97.2 F L 09/06/22 20:16 Pulse Rate 97 09/06/22 20:16 Respiratory Rate 18 09/06/22 20:16 Blood Pressure 153/90 H 09/06/22 20:16 Pulse Oximetry 99 09/06/22 20:16 Oxygen Delivery Method Room Air 09/06/22 20:16 Medical Decision Making Medical Records Medical records reviewed: Yes I reviewed the patient's medical records Lab Data Lab results reviewed: Yes I reviewed the patient's lab results Discharge Plan Discharge Prescriptions: No Action celecoxib 200 mg capsule 200 mg PO QDAY Qty: 30 1RF levothyroxine [Levo-T] 100 mcg tablet 100 mcg PO DAILY Qty: 90 3RF Follow Up/Referrals: Jarrod Carlos MD [Primary Care Provider] -
--- OUTSIDE RECORDS SUMMARY | 2022-09-06 20:54 | XMS_ITS | Continuity of Care Document ---
Author Name Unknown Organization [facility] Address [address] [address] [place] [address] Phone Care Team Providers Care [employer] Physical Education Teacher Name Role Phone Link Arturo MARI Unavailable Unavailable Allergies, Adverse Reactions, Alerts Substance Reaction Status Criticality No Known Drug Allergies Active No I nformation Medications Medication Instructions Dosage Effective Dates (start - stop) Status Comments LECITHIN (unknown strength) Take one tablet by mouth daily Not Available - Active SALMON OIL-1000 (unknown strength) Take one tablet by mouth daily Not Available - Active NATURAL CALCIUM (unknown strength) Take 1 tablet by mouth daily Not Available - Active VITAMIN C (unknown strength) Take one tablet by mouth daily Not Available - Active LISINOPRIL (unknown strength) take 1 tablet by oral route every day Not Available - Active Synthroid 100 mcg Tab Take 1 tablet by mouth daily - Active Vitamin D 1,000 unit Tab Take one tablet by mouth daily - Active MiralaxBisacodylMagCit Colon Prep Use as directed - No Longer Active Procedures Procedure Date Colonoscopy Flex; W/bx 1/mx Level Iv-surg Path Gross/micro 13 Colonoscopy Flex; W/remov Les- 10 Level Iv-surg Path Gross/micro 10 Level Iv-surg Path Gross/micro 10 Advance Directives Directive Yes / No Effective Date File Name Resuscitation Not Answered N/A N/A Life Support Not Answered N/A N/A Intubation Not Answered N/A N/A Antibiotics Not Answered N/A N/A IV Fluid Support Not Answered N/A N/A Tube Feed Not Answered N/A N/A Other Directive N/A N/A WARNING:The information contained in this section is historical and is provided for information only and does not constitute a legal document or any assurance that the information is still accurate. Please verify the information with the carrillo of the legal document before using it for clinical purposes. Encounters Encounter Description Practice Location Reason(s) For Visit Diagnoses Date Provider Providers Copied on Encounter [facility], [address] [address], [place], [place], [id number], [place] tel:[phone] [facility] Polyp-intes/rect /stom-unc BehHemorrhoids NosPersonal History Colon PolypsColon Cancer ScreeningDiverti culosis Of ColonPersonal History Colon PolypsBenign Neoplasm Colon [address]. [address] [place] [address], [id number], [place]. tel:[phone] [facility], [address] [address], [place], [place], [id number], [place] tel:[phone] [facility] No Information 3 No Information [facility], [address] [address], [place], [place], [id number], [place] tel:[phone] [facility] Family Hx GI Tract CancerColon Cancer ScreeningDiverti culosis Of ColonRectal Polyp/BenignBeni gn Neoplasm Lg Bowel [address] [place]. [facility] [address] [place], [place], [id number], [place]. tel:[phone] Family History Family Member Type Diagnosis Age At Onset No Information Payers Payer name Insurance type Covered republican ID Authoriza tion(s) Blue Cross [place] [employer] [place] [id number] Social History Type Description Quantity Date Captured Comments Alcohol Use Details Unknown Caffeine Use Details Unknown Tobacco Use Status Smoking Status No Information Sex Female Chief Complaint And Reason For Visit No Information Reason For Referral Reason For Referral No Information Plan Of Treatment Date Type Action Status No Information History Of Present Illness Encounter Date Complaint History Of Prese nt Illness No Information Functional Status Date Functional Assessmen t No Information Instructions Date Instruction Additional Infor mation No Information Assessments Type Assessment Date No Information Patient Care Teams Name Effective Dates (start - stop) Status Members No Information
== END 2022-09-06 20:55 | disposition home or self-care (01) ==
LOC: ED 20:52
PROVIDERS: Emergency Provider Family Medicine; PCP Family Medicine
DX: S80.861A Insect bite (nonvenomous), right lower leg, initial encounter (principal)
CPT/HCPCS: 99282; 99283

== ENCOUNTER 2023-03-07 11:08 | Emergency (ER) | payer MEDICARE, SELFPAY ==
[2023-03-07] VITALS (23 sets, daily range): BP systolic 129–165; BP diastolic 76–104; PULSE 61–87; RESP 16; TEMP 36; O2SAT 93–99; BMI 22.6
[2023-03-07] MEDS: 0.9 % SODIUM CHLORIDE 1000 ml 1,000 ML IV (12:00)
--- NOTE | 2023-03-07 12:02 | ED.GENADULT ---
HPI - General Adult General Time Seen by Provider: 12:03 Date Seen: 03/07/23 Chief complaint: Anxiety Stated complaint: Faint Time Seen by Provider: 03/07/23 12:01 Source: patient Mode of arrival: EMS History of Present Illness HPI narrative: Sole is a 85 year old female with past history of anemia, hypothyroidism and chronic lower back pain resent to the emergency department via EMS with syncopal episode. Patient states she got up early this morning, she did not sleep well, she took her thyroid medication, started packing his she was heading to [place] to spend time with her sister for gi. During packing she developed some lower back pain which is not unusual, she does have chronic lower back pain, she does take an aspirin which had helped. Patient did not eat anything this morning, she was walking towards the kitchen to get some breakfast. She had a woozy sensation in her head as well as in her chest, felt very lightheaded. So she sat down in a chair and called her son. When he came he lowered her to the ground, she woke up on the ground feeling hot and sweaty. She laid there until EMS arrived. Patient denied any shortness of breath or chest pain prior to the episode, patient has had a syncopal spell in the past, she states it has been many years. Blood sugar was 141. Patient denies any history of CVA or CAD, patient denies any recent headache, illness including fevers chills, she denies any nausea vomiting, abdominal pain, she has had normal urinary and bowel habits. 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 She was recently started on Lexapro by her primary care provider, she ended up stopping the medication after 5 days because of how it made her feel, she usually gets dizzy and has nausea and chest discomfort with it, her daughter in law told her to take benadry with it which helped, she ended up stoppinng the Lexapro. She was going to call her primary care provider discussed with him about starting Prozac. Patient was seen in the emergency department last year during this same time for an episode of vertigo, this is after receiving an upset ladder from her daughter. Patient is feeling better once she has arrived to the emergency department. Related Data Previous Rx's Medication Instructions Recorded levothyroxine 100 mcg tablet 100 mcg PO DAILY #90 tabs 03/21/22 (Levo-T) fluoxetine 10 mg capsule (Prozac) 10 mg PO DAILY #30 caps 03/07/23 fluoxetine 10 mg capsule (Prozac) 10 mg PO DAILY #30 caps 03/07/23 Allergies Allergy/AdvReac Type Severity Reaction Status Date / Time acetaminophen [From Tylenol] AdvReac Mild Vomiting Verified 03/07/23 11:17 Review of Systems Status of ROS: Reports: 10 or more systems reviewed and unremarkable except as noted in History and below [facility] Medical History Tobacco abuse ?Z72.0 - Tobacco use (ICD-10) Compression fracture of lumbar vertebra ?S32.000A - Wedge compression fracture of unspecified lumbar vertebra, initial encounter for closed fracture (ICD-10) Surgical History Status post hysterectomy with oophorectomy ?Z90.710 - Acquired absence of both cervix and uterus (ICD-10) ?Z90.721 - Acquired absence of ovaries, unilateral (ICD-10) Status post cataract extraction ?Z98.49 - Cataract extraction status, unspecified eye (ICD-10) Status post appendectomy ?Z90.49 - Acquired absence of other specified parts of digestive tract (ICD-10) Social History Narrative: alcohol abuse Highest level of school completed/degree received: high school graduate Smoking Status: Former smoker What tobacco products do you use: cigarettes Smoking quit date/years: <= 15 years ago How often do you have a drink containing alcohol: never AUDIT-C Alcohol total score: 0 Non-prescribed substance use: denies use Caffeine: Yes (Coffee) Little interest or pleasure in doing things: several days Feeling down, depressed, or hopeless: several days service: No Exam Narrative: Exam Narrative: General: No obvious distress sitting comfortably HEENT: Pupils equal round reactive to light, tympanic membranes within normal limits bilaterally, extraocular muscles intact Neck: Supple full range of motion Lungs: Clear to auscultation bilaterally Heart: Normal sinus rhythm S1-S2 Abdomen: Soft nontender bowel sounds present Muscle skeletal: +5 strength upper lower extremities Neuro: Alert awake and oriented x3, no focal deficits Psych: Anxious in appearance Const: Vital Signs, click to edit/add: Vital Signs - 24 hr 03/07/23 11:17 03/07/23 11:32 03/07/23 11:58 Temperature 96.8 F L Pulse Rate 75 Pulse Rate [Pulse Oximeter] 61 Pulse Rate [orthos tatic lying] 63 Pulse Rate [orthos tatic sitting] 79 Pulse Rate [orthos tatic standing] 76 Respiratory Rate 16 Blood Pressure Blood Pressure [Ri ght Upper Arm] 165/77 H Blood Pressure [or thostatic lying] 132/86 Blood Pressure [or thostatic sitting] 159/79 H Blood Pressure [or thostatic standing ] 144/80 H Pulse Oximetry 97 98 Oxygen Delivery Me thod Room Air 03/07/23 12:00 03/07/23 12:02 03/07/23 12:15 Temperature Pulse Rate 64 62 62 Pulse Rate [Pulse Oximeter] Pulse Rate [orthos tatic lying] Pulse Rate [orthos tatic sitting] Pulse Rate [orthos tatic standing] Respiratory Rate Blood Pressure 129/85 Blood Pressure [Ri ght Upper Arm] Blood Pressure [or thostatic lying] Blood Pressure [or thostatic sitting] Blood Pressure [or thostatic standing ] Pulse Oximetry 97 98 98 Oxygen Delivery Me thod 03/07/23 12:30 03/07/23 12:33 03/07/23 12:47 Temperature Pulse Rate 75 77 79 Pulse Rate [Pulse Oximeter] Pulse Rate [orthos tatic lying] Pulse Rate [orthos tatic sitting] Pulse Rate [orthos tatic standing] Respiratory Rate Blood Pressure 164/85 H Blood Pressure [Ri ght Upper Arm] Blood Pressure [or thostatic lying] Blood Pressure [or thostatic sitting] Blood Pressure [or thostatic standing ] Pulse Oximetry 99 99 99 Oxygen Delivery Me thod 03/07/23 13:00 03/07/23 13:02 03/07/23 13:18 Temperature Pulse Rate 77 76 83 Pulse Rate [Pulse Oximeter] Pulse Rate [orthos tatic lying] Pulse Rate [orthos tatic sitting] Pulse Rate [orthos tatic standing] Respiratory Rate Blood Pressure 150/80 H Blood Pressure [Ri ght Upper Arm] Blood Pressure [or thostatic lying] Blood Pressure [or thostatic sitting] Blood Pressure [or thostatic standing ] Pulse Oximetry 98 99 98 Oxygen Delivery Me thod 03/07/23 13:32 03/07/23 13:33 03/07/23 13:45 Temperature Pulse Rate 77 79 77 Pulse Rate [Pulse Oximeter] Pulse Rate [orthos tatic lying] Pulse Rate [orthos tatic sitting] Pulse Rate [orthos tatic standing] Respiratory Rate Blood Pressure 133/104 H Blood Pressure [Ri ght Upper Arm] Blood Pressure [or thostatic lying] Blood Pressure [or thostatic sitting] Blood Pressure [or thostatic standing ] Pulse Oximetry 99 97 97 Oxygen Delivery Me thod 03/07/23 14:00 03/07/23 14:02 03/07/23 14:15 Temperature Pulse Rate 80 84 77 Pulse Rate [Pulse Oximeter] Pulse Rate [orthos tatic lying] Pulse Rate [orthos tatic sitting] Pulse Rate [orthos tatic standing] Respiratory Rate Blood Pressure 156/76 H Blood Pressure [Ri ght Upper Arm] Blood Pressure [or thostatic lying] Blood Pressure [or thostatic sitting] Blood Pressure [or thostatic standing ] Pulse Oximetry 98 97 93 Oxygen Delivery Me thod 03/07/23 14:34 03/07/23 14:35 03/07/23 14:45 Temperature Pulse Rate 87 84 75 Pulse Rate [Pulse Oximeter] Pulse Rate [orthos tatic lying] Pulse Rate [orthos tatic sitting] Pulse Rate [orthos tatic standing] Respiratory Rate Blood Pressure 165/96 H Blood Pressure [Ri ght Upper Arm] Blood Pressure [or thostatic lying] Blood Pressure [or thostatic sitting] Blood Pressure [or thostatic standing ] Pulse Oximetry 97 97 94 Oxygen Delivery Me thod Course Course ED Course: 11:30 AM: AIDET performed, vitals are stable at this time, mildly elevated blood pressure will continue to monitor, workup will include EKG, point of care troponin, TSH, CBC, CMP, urinalysis and orthostatics, she will receive IV fluids 0.9 normal saline bolus. Less likely vertigo, or CVA, seems related to stress and vasovagal episode. Will still obtain CT head without contrast. Differential diagnosis include but not limited to CVA, CAD, electrolyte imbalance, dehydration, orthostatic, medication side effects, psychosocial Reevaluation(s) Time of Reevaluation #1: 12:44 Reevaluation #1: Patient was updated on her EKG lab results, EKG showed a sinus bradycardia, the bpm 59, incomplete right bundle-branch block seen on previous, no ectopy or acute ST changes compared to previous, 03/11/22. CBC showed no leukocytosis, chronic anemia, metabolic panel showed normal electrolytes and renal function, patient was lightheaded on orthostatics sitting to standing, no real changes with her systolic and heart rate, patient received the above care and is feeling better. Was able to speak to primary care provider Dr. Carlos, with further discussion decision was to put patient on Prozac 10 mg daily. Reevaluation #2: CT head without IV contrast: FINDINGS: Periventricular areas of low attenuation, likely due to chronic small vessel ischemic changes. Generalized volume loss. Atherosclerosis. No intracranial hemorrhage. No discrete mass or mass effect. There is no midline shift. The basilar cisterns are patent. No hydrocephalus. The prince-white matter interface is otherwise preserved. No acute osseous abnormality. No extracalvarial soft tissue abnormality. The mastoid air cells are clear. The paranasal sinuses are well-aerated. The visualized portions of the orbits and globes are unremarkable. Patient was updated on her imaging results no acute finding, she was given an oral dose of Prozac 10 mg here in the emergency department, prescription will be sent to her pharmacy, follow-up arranged to see her primary care provider next week on 03/15 after coming home from [place]. Patient is feeling better after above care given, plan would be to discharge, reasons to return were given. Time of Reevaluation #3: 13:02 Vital Signs Vital signs: Initial Vital Signs Temperature 96.8 F L 03/07/23 11:17 Temperature Source Temporal Artery Scan 03/07/23 11:17 Pulse Rate 61 03/07/23 11:17 Respiratory Rate 16 03/07/23 11:17 Blood Pressure 165/77 H 03/07/23 11:17 Blood Pressure Mean 106 H 03/07/23 11:17 Blood Pressure Position High-Fowlers 03/07/23 11:17 Pulse Oximetry 97 03/07/23 11:17 Oxygen Delivery Method Room Air 03/07/23 11:17 Vital Signs Temperature 96.8 F L 03/07/23 11:17 Pulse Rate 61 03/07/23 11:17 Respiratory Rate 16 03/07/23 11:17 Blood Pressure 165/77 H 03/07/23 11:17 Pulse Oximetry 97 03/07/23 11:17 Oxygen Delivery Method Room Air 03/07/23 11:17 Temperature 96.8 F L 03/07/23 11:17 Pulse Rate 75 03/07/23 14:45 Respiratory Rate 16 03/07/23 11:17 Blood Pressure 165/96 H 03/07/23 14:34 Pulse Oximetry 94 03/07/23 14:45 Oxygen Delivery Method Room Air 03/07/23 11:17 Medications Administered Medications: Discontinued Medications Generic Name Dose Route Start Last Admin Trade Name Freq PRN Reason Stop Dose Admin Fluoxetine HCl 10 mg 03/07/23 13:51 03/07/23 14:33 Fluoxetine Hcl 10 Mg Capsule PO 03/07/23 13:52 10 mg DAILY ONE Administration Sodium Chloride 1,000 mls @ 1,000 mls/hr 03/07/23 13:39 03/07/23 13:00 0.9 % Sodium Chloride 1000 Ml IV 03/07/23 14:38 Infused .Q1H PRASAD Infusion Medical Decision Making Lab Data Labs: Lab Results 03/07/23 03/07/23 03/07/23 Range/Units 11:33 11:50 13:11 WBC 6.95 (4.50-11.00) K/uL RBC 4.59 (4.00-5.20) m/uL Hgb 13.4 (12.0-16.0) gm/dL Hct 40.3 (33.0-51.0) % MCV 88 (80-100) fL MCH 29 (26-34) pg MCHC 33 (32-36) gm/dL RDW Coeff of Nida 14.0 (11.5-15.5) % Plt Count 343 (140-440) K/uL Neut % (Auto) 71.9 (42.0-72.0) % Lymph % (Auto) 17.4 L (20-44) % [place] % (Auto) 9.1 (0.0-11.0) % Eos % (Auto) 0.9 (0.0-7.0) % Baso % (Auto) 0.6 (0.0-3.0) % Neut # (Auto) 5.00 (1.7-7.0) K/uL Lymph # (Auto) 1.20 (0.90-2.90) K/uL [place] # (Auto) 0.60 (0.00-0.90) K/UL Eos # (Auto) 0.06 (0.00-0.50) K/uL Baso # (Auto) 0.04 (0.00-0.30) K/uL Abs Immat Gran (auto) 0.01 (0.00-0.30) K/uL Imm/Tot Granulo (auto) 0.1 % Sodium 132 L (135-149) mmol/L Potassium 4.0 (3.6-5.1) mmol/L Chloride 96 (96-114) mmol/L Carbon Dioxide 27 (20-32) mmol/L Anion Gap 9 (7-15) mEq/L BUN 8 (7-30) mg/dL Creatinine 0.7 (0.5-1.5) mg/dL Estimated Creat Clear 40.60 Estimated GFR 86 ml/min Glucose 121 H (60-115) mg/dL Calcium 9.0 (8.4-10.6) mg/dL Total Bilirubin 0.4 (0.1-1.5) mg/dL AST 25 (12-35) U/L ALT 13 (4-35) U/L Alkaline Phosphatase 129 (40-150) U/L Total Protein 7.7 (6.0-8.3) g/dL Albumin 4.5 (3.3-5.0) g/dL TSH 1.390 (0.270-4.20) uIU/mL Urine Color Yellow (Yellow) Urine Appearance Clear (Clear) Urine pH 7.0 (5.0-8.5) Ur Specific [place] 1.010 (1.000-1.030) Urine Protein Negative (Negative) Urine Glucose (UA) Negative (Negative) Urine Ketones Negative (Negative) Urine Blood Trace-intact A (Negative) Urine Nitrite Negative (Negative) Urine Bilirubin Negative (Negative) Urine Urobilinogen 0.2 (0.2-1.0) Ur Leukocyte Esterase Trace A (Negative) Urine RBC 0-2 (0-2) Urine WBC 0-2 (0-5) Ur Squamous Epith Cells None (None-Few) Urine Bacteria None (None) POC Troponin I 0.01 (0.01-0.04) ng/ml Discharge Plan Discharge Clinical Impression: Anxiety, Syncope, Stress at home Patient Disposition: Home, Self-Care Condition: Improved Instructions: Syncope (ED), Stress (ED), Anxiety (ED) Additional Instructions: To plan on starting Prozac 10 mg once daily, to follow-up with primary care provider next week as scheduled, Follow up appointment is scheduled at the [facility] on 03/15 with a 12:45pm appointment time. Please arrive at 12:30pm to check in and complete paperwork. If you have any questions or need to reschedule, please call [phone]. [facility] [address] [place] [address] Activity Level: No Restrictions Prescriptions: New fluoxetine [Prozac] 10 mg capsule 10 mg PO DAILY Qty: 30 2RF fluoxetine [Prozac] 10 mg capsule 10 mg PO DAILY Qty: 30 0RF No Action levothyroxine [Levo-T] 100 mcg tablet 100 mcg PO DAILY Qty: 90 3RF Follow Up/Referrals: Jarrod Carlos MD [Primary Care Provider] - Stand Alone Forms: [employer] Info Instructions
[2023-03-07 12:05] LABS: Basophils Absolute Auto 0.04 K/uL (0.00-0.30); Basophils Percent Auto 0.6 % (0.0-3.0); Eosinophils Absolute Auto 0.06 K/uL (0.00-0.50); Eosinophils Percent Auto 0.9 % (0.0-7.0); Hematocrit 40.3 % (33.0-51.0); Hemoglobin* 13.4 gm/dL (12.0-16.0); Immature Granulocytes Abs Auto 0.01 K/uL (0.00-0.30); Immature Granulocytes Pct Auto 0.1 %; Lymphocytes Percent Auto 17.4 % (20-44); Mean Corpuscular HGB Conc 33 gm/dL (32-36); Mean Corpuscular Hemoglobin 29 pg (26-34); Mean Corpuscular Volume 88 fL (80-100); Monocytes Percent Auto 9.1 % (0.0-11.0); Neutrophils Percent Auto 71.9 % (42.0-72.0); Platelet Count* 343 K/uL (140-440); Red Blood Count 4.59 m/uL (4.00-5.20); White Blood Count* 6.95 K/uL (4.50-11.00)
[2023-03-07 12:08] LABS: Troponin, Point-of-Care* 0.01 ng/ml (0.01-0.04)
[2023-03-07 12:21] LABS: Albumin* 4.5 g/dL (3.3-5.0); Chloride* 96 mmol/L (96-114); Sodium* 132 mmol/L (135-149)
[2023-03-07 12:22] LABS: Slide Review Reflex No
[2023-03-07 12:23] LABS: Bilirubin Total* 0.4 mg/dL (0.1-1.5); Creatinine* 0.7 mg/dL (0.5-1.5); Estimated Glomerular Filt Rate 86 ml/min
[2023-03-07 12:24] LABS: Alanine Aminotransferase* 13 U/L (4-35); Alkaline Phosphatase* 129 U/L (40-150); Anion Gap 9 mEq/L (7-15); Aspartate Amino Transferase* 25 U/L (12-35); Blood Urea Nitrogen* 8 mg/dL (7-30); Carbon Dioxide* 27 mmol/L (20-32); Glucose* 121 mg/dL (60-115); Total Protein* 7.7 g/dL (6.0-8.3)
--- NOTE | 2023-03-07 12:53 | CRLHL7_ITS ---
For Patients: As a result of the Century Cures Act, medical imaging exams and procedure reports are released immediately into your electronic medical record. You may view this report before your referring provider. If you have questions, please contact your health care provider. INDICATION: . Syncope, DIZZINESS TECHNIQUE: Head CT without contrast. COMPARISON: June 2018. FINDINGS: Periventricular areas of low attenuation, likely due to chronic small vessel ischemic changes. Generalized volume loss. Atherosclerosis. No intracranial hemorrhage. No discrete mass or mass effect. There is no midline shift. The basilar cisterns are patent. No hydrocephalus. The prince-white matter interface is otherwise preserved. No acute osseous abnormality. No extracalvarial soft tissue abnormality. The mastoid air cells are clear. The paranasal sinuses are well-aerated. The visualized portions of the orbits and globes are unremarkable. IMPRESSION: No acute intracranial process per unenhanced head CT. Please note that all CT scans at this facility use dose modulation, iterative reconstruction, and/or weight-based dosing when appropriate to reduce radiation dose to as low as reasonably achievable. Dictated by Jaswinder Chilel MD @ 03/07/2023 2:29:38 PM (Electronically Signed)
[2023-03-07 13:25] LABS: Appearance Urine Clear (Clear); Bilirubin Urine Negative (Negative); Blood Urine Trace-intact (Negative); Color Urine Yellow (Yellow); Glucose Urine Negative (Negative); Ketones Urine Negative (Negative); Leukocyte Esterase Urine Trace (Negative); Nitrite Urine Negative (Negative); Protein Urine Negative (Negative); Urobilinogen Urine 0.2 (0.2-1.0)
[2023-03-07 13:34] LABS: RBC Urine 0-2 (0-2); WBC Urine 0-2 (0-5)
[2023-03-07] MEDS: FLUOXETINE HCL 10 MG CAPSULE PO (14:33)
== END 2023-03-07 15:22 | disposition home or self-care (01) ==
PROVIDERS: Emergency Provider Student in an Organized Health Care Education/Training Program; PCP Family Medicine
DX: R55 Syncope and collapse (principal); F41.9 Anxiety disorder, unspecified; F43.9 Reaction to severe stress, unspecified
CPT/HCPCS: 36415; 70450; 80053; 81001; 84443; 84484; 85025; 93005; 94761; 96360; 99283; 99284; 99285; A9270; J7030

== ENCOUNTER 2023-12-25 13:18 | Outpatient (CLI) | payer MEDICARE, SELFPAY ==
--- OUTSIDE RECORDS SUMMARY | 2023-12-25 13:25 | XMS_ITS | Clinical Summary ---
Author Organization [employer] [email or web address] Address [place], [place] [address] Care Team Providers Care Dampener Name Role Phone Jarrod Carlos MD Primary Care Provider [phone] Allergies No known active allergies Medications Medication Sig Dispensed Refills Start Date End Date Status cholecalciferol (VITAMIN D) 1,000 unit capsule Take 1 capsule by mouth once daily. 0 03/23/2010 Active levothyroxine (SYNTHROID) 88 mcg tabletIndications:Acqui red hypothyroidism Take 1 tablet by mouth once daily. 90 tablet 11/02/2016 Active Active Problems Problem Noted Date Diagnosed Date Unspecified hypothyroidism 10/20/2009 Vitamin D deficiency 10/20/2009 Other and unspecified hyperlipidemia 10/16/2009 Tobacco abuse 10/16/2009 Routine health maintenance 10/16/2009 Overview (10/16/2009): Last cpx-06/24 Last breast exam-06/24 HYST Last mammogram-07/24 Last lipid-05/25,LDL-144 Last colonoscopy-11/16 Immunizations Name Administration Dates Next Due Pneumococcal Poly,23-Valent (Pneumovax) 07/04/19 13 Pneumococcal conj 13-Valent (Prevnar 13) 016 Td (Age >=7 Years) 03/09/2009,07/27/1998 Family History Medical History Relation Name Comments Good Health Brother Diabetes Father Hypertension Mother old age Good Health Sister Relation Name Status Comments Brother Father Mother Sister Social History Tobacco Use Types Packs/Day Years Used Date Smoking Tobacco: Every Day Cigarettes Smokeless Tobacco: Never Tobacco Cessation:Counseling Given: Yes Alcohol Use Standard Drinks/Week Comments Yes 0 (1 standard drink = 0.6 oz pur e alcohol) Sex and Gender Information Value Date Recorded Sex Assigned at Not on file Gender Identity Not on file Sexual Orientation Not on file Obstetrics History Last Filed Vital Signs Vital Sign Reading Time Taken Comments Blood Pressure 152/94 08/19/2015 1:06 PM CDT Pulse 100 08/19/2015 1:06 PM CDT Temperature 36.9 ??C (98.5 ??F) 11/11/2014 1:26 PM CD T Respiratory Rate - - Oxygen Saturation - - Inhaled Oxygen Concentration - - Weight 60.3 kg (133 lb) 08/19/2015 1:04 PM CDT Height 166.4 cm (5' 5.5) 08/19/2015 1:04 PM CDT Body Mass Index 21.8 08/19/2015 1:04 PM CDT Plan of Treatment Health Maintenance Due Date Last Done Comments Tdap 02/28/1951 Zoster (shingles) series for age 50+ (1 of 2) 1991 RSV vaccine for adults or pr egnancy (1 - 1-dose 60+ series) 2001 DEXA/DXA scan for age 65+ 2006 BMI (ht and wt on same day) for age 18+ 08/18/2016 0 08/19/2015 Depression screening for age 12+ 08/18/2016 08/19/19 16 Tetanus booster 03/09/2019 03/09/2009, 07/27/1998 COVID-19 vaccine series ( season) 2023 Influenza for age 65+ 12/17/2023 Pneumococcal series for age 65+ Completed , 07/03/2012 Advance Directives Documents on File Type Date Recorded Patient [place] Expl anation Healthcare Directive 11/11/2014 3:17 PM Care Teams Dampener Relationship Specialty Start Date End Date Jarrod Carlos MD PCP - General Family Practice 09/21/16
== END 2023-12-25 13:19 | disposition home or self-care (01) ==
PROVIDERS: PCP Family Medicine; Visit Provider Family Medicine
DX: R53.83 Other fatigue (principal); R51.9 Headache, unspecified; E03.9 Hypothyroidism, unspecified
CPT/HCPCS: 84439; 84443

== ENCOUNTER 2024-03-12 15:23 | Outpatient (CLI) | payer MEDICARE, SELFPAY | END 2024-03-12 15:24 | disposition home or self-care (01) | LOC: LKVREF 15:25 | PROVIDERS: PCP Family Medicine; Visit Provider Family Medicine | DX: R53.83 Other fatigue (principal); R06.02 Shortness of breath; I10 Essential (primary) hypertension | CPT/HCPCS: 83880 ==

== ENCOUNTER 2024-08-20 15:05 | Outpatient (CLI) | payer MEDICARE, SELFPAY | END 2024-08-20 15:06 | disposition home or self-care (01) | PROVIDERS: PCP Family Medicine; Visit Provider Family Medicine | DX: E03.9 Hypothyroidism, unspecified (principal); R53.83 Other fatigue | CPT/HCPCS: 84439; 84443 ==

== ENCOUNTER 2024-08-22 14:31 | Emergency (ER) | payer MEDICARE, SELFPAY ==
[2024-08-22 14:39] VITALS: BP 178/95; PULSE 86; RESP 20; TEMP 36.6; O2SAT 97; BMI 22.9
--- NOTE | 2024-08-22 15:14 | ED_ITS ---
History of Present Illness General Chief Complaint: Epistaxis/Nosebleed Stated Complaint: Nose Bleed Time Seen by Provider: 08/22/24 14:50 History of Present Illness HPI Narrative: this 84-year-old female went to urgent care prior to arrival here because of a nosebleed . A nasal packing was placed which appears to be a Merocel and the patient returned home. She states that she started bleeding again more anteriorly. She does not report any lightheadedness or shortness of breath. She states that she takes at [facility] aspirin every day for her back pain. She has also been using a steroid eye drop for the past couple weeks in her left eye. The eye drop is soon to be complete in its prescription instructions. Her nosebleed is on the left side also. Related Data Home Medications ?Medication ?Instructions ?Recorded ?Confirmed mecobalamin (vitamin B12) 1,000 1,000 mcg PO QDAY 03/20/24 08/22/24 mcg chewable tablet turmeric 400 mg capsule mg PO DAILY 03/20/24 08/22/24 Previous Rx's ?Medication ?Instructions ?Recorded fluoxetine 20 mg capsule See Rx Instructions PO .ud #135 03/25/24 caps levothyroxine 100 mcg tablet 100 mcg PO DAILY #90 tabs 04/09/24 (Levo-T) ketorolac 10 mg tablet 10 mg PO TID 5 days #15 tabs 08/22/24 Allergies Allergy/AdvReac Type Severity Reaction Status Date / Time acetaminophen (From Tylenol) AdvReac Mild Vomiting Verified 08/22/24 14:36 Review of Systems Status of ROS: Reports: 10 or more systems reviewed and unremarkable except as noted in History and below Narrative: Constitutional: No fevers, no weight gain or loss. Eyes: No discharge. No vision changes. HENT: No congestion, no sore throat, no ear pain. Cardiovascular: No chest pain, no palpitations. Respiratory: No shortness of breath, no wheezes, no cough. Gastrointestinal: No abdominal pain, no vomiting, no diarrhea. Genitourinary: No dysuria, no hematuria. Musculoskeletal: Normal range of motion. Skin: No rashes, no pruritis. Neurological: No dizziness, weakness, sensory change, speech change. Endo/Heme/Allergies: No bruising or bleeding. No polydipsia. Pysch: no suicidality, no anxiety, no insomnia. All other systems reviewed and are negative. [facility] Medical History (Updated 08/22/24 @ 15:19 by Jarrod Morrissey MD) Nosebleed ?R04.0 - Epistaxis (ICD-10) Fatigue ?R53.83 - Other fatigue (ICD-10) Sinusitis ?J32.9 - Chronic sinusitis, unspecified (ICD-10) Shortness of breath ?R06.02 - Shortness of breath (ICD-10) Tobacco abuse ?Z72.0 - Tobacco use (ICD-10) Compression fracture of lumbar vertebra ?S32.000A - Wedge compression fracture of unspecified lumbar vertebra, initial encounter for closed fracture (ICD-10) Surgical History Status post hysterectomy with oophorectomy ?Z90.710 - Acquired absence of both cervix and uterus (ICD-10) ?Z90.721 - Acquired absence of ovaries, unilateral (ICD-10) Status post cataract extraction ?Z98.49 - Cataract extraction status, unspecified eye (ICD-10) Status post appendectomy ?Z90.49 - Acquired absence of other specified parts of digestive tract (ICD- 10) Social History Narrative: alcohol abuse Highest level of school completed/degree received: high school graduate Smoking Status: Former smoker What tobacco products do you use: cigarettes Smoking quit date/years: <= 15 years ago How often do you have a drink containing alcohol: never AUDIT-C Alcohol total score: 0 Non-prescribed substance use: denies use Caffeine: Yes (Coffee) service: No Exam Narrative: Exam Narrative: Constitutional: Well-developed, well-nourished, no acute distress. HEENT: Normocephalic, atraumatic. Left nostril has packing in place and no sign of ongoing bleeding. Right nostril appears clear. Oropharynx also shows no sign of posterior bleeding. Neck: Normal range of motion. Nontender. Supple. Heart: Regular. No murmurs. Normal rate. Intact distal pulses. Lungs: Clear to auscultation. No chest discomfort. No wheezes, rhonchi, or rales. Abdomen: Normal bowel sounds. Nontender. No rebound tenderness. Genitalia: Deferred. Back: No midline tenderness. Normal range of motion. Extremities: Normal range of motion. No injury. Skin: Intact. No rash. Warm. No erythema or pallor. Neurologic: No altered sensation. No weakness. Alert and oriented. Psychiatric: No suicidality. No anxiety or depression. No insomnia. Nursing notes and vitals signs are reviewed. Const: Vital Signs, click to edit/add: Vital Signs - 24 hr 08/22/24 14:39 Temperature 97.9 F Pulse Rate [Pulse Oximeter] 86 Respiratory Rate 20 Blood Pressure [Ri ght Upper Arm] 178/95 H Pulse Oximetry 97 Oxygen Delivery Me thod Room Air Course Vital Signs Vital signs: Initial Vital Signs Temperature 97.9 F 08/22/24 14:39 Temperature Source Temporal Artery Scan 08/22/24 14:39 Pulse Rate 86 08/22/24 14:39 Respiratory Rate 20 08/22/24 14:39 Blood Pressure 178/95 H 08/22/24 14:39 Blood Pressure Mean 122 H 08/22/24 14:39 Pulse Oximetry 97 08/22/24 14:39 Oxygen Delivery Method Room Air 08/22/24 14:39 Vital Signs Temperature 97.9 F 08/22/24 14:39 Pulse Rate 86 08/22/24 14:39 Respiratory Rate 20 08/22/24 14:39 Blood Pressure 178/95 H 08/22/24 14:39 Pulse Oximetry 97 08/22/24 14:39 Oxygen Delivery Method Room Air 08/22/24 14:39 Temperature 97.9 F 08/22/24 14:39 Pulse Rate 86 08/22/24 14:39 Respiratory Rate 20 08/22/24 14:39 Blood Pressure 178/95 H 08/22/24 14:39 Pulse Oximetry 97 08/22/24 14:39 Oxygen Delivery Method Room Air 08/22/24 14:39 MDM - Epistaxis MDM Narrative Medical decision making narrative: This patient has a Merocel packing in place in her left nostril that seems to be working properly at this time. She did report some bleeding anterior to the packing prior to arrival here. I did note that she is somewhat too aggressive when managing her symptoms in her nose and recommended that she be very gentle as the injury will need to recover and best to leave things alone if possible. I did provide a nasal clamp that can be applied if she does rebleed. She has plans to have the Merocel removed in 2 days. I also recommended that she discontinue using aspirin as this will prolonged bleeding. Additionally her steroid eyedrops are almost completed and it could be possible that the steroid his draining down into her left nostril through the nasolacrimal duct and causing some thinning of her Mucosa over time. she is okay to be discharged home. Discharge Plan Discharge Clinical Impression: Epistaxis Condition: Stable Additional Instructions: continue current plans. Use nasal clamp if rebleeding occurs. If persistent bleeding happens return to emergency department. Hold aspirin while recovering from this nose bleed. Prescriptions: New ketorolac 10 mg tablet 10 mg PO TID 5 Days Qty: 15 0RF No Action turmeric 400 mg capsule PO DAILY mecobalamin (vitamin B12) 1,000 mcg tablet,chewable 1,000 mcg PO QDAY fluoxetine 20 mg capsule See Rx Instructions PO .ud Qty: 135 3RF Rx Instructions: orally UD; 40 mg alternate with 20 mg, every other day. Take 40 mg 1 day and 20 mg the next. levothyroxine [Levo-T] 100 mcg tablet 100 mcg PO DAILY Qty: 90 2RF Follow Up/Referrals: Jarrod Carlos MD [Primary Care Provider] -
== END 2024-08-22 15:45 | disposition home or self-care (01) ==
LOC: ED 15:32
PROVIDERS: Emergency Provider Emergency Medicine Emergency Medical Services; PCP Family Medicine
DX: R04.0 Epistaxis (principal)
CPT/HCPCS: 99282; 99283; 99284

== ENCOUNTER 2024-10-16 14:56 | Outpatient (CLI) | payer MEDICARE, SELFPAY | END 2024-10-16 14:57 | disposition home or self-care (01) | PROVIDERS: PCP Family Medicine; Visit Provider Otolaryngology | DX: H91.92 Unspecified hearing loss, left ear (principal); H93.12 Tinnitus, left ear | CPT/HCPCS: 82728; 86038; 86039; 86140; 86618 ==

== ENCOUNTER 2024-10-31 13:35 | Outpatient (CLI) | payer MEDICARE, SELFPAY ==
--- NOTE | 2024-10-31 13:45 | CRLHL7_ITS ---
For Patients: As a result of the Century Cures Act, medical imaging exams and procedure reports are released immediately into your electronic medical record. You may view this report before your referring provider. If you have questions, please contact your health care provider. Indication: Hearing loss. Technique: Multiplanar, multisequence MRI of the brain performed without and with intravenous contrast, including high resolution imaging through the IAC`s. Contrast: 15 cc Dotarem. Comparison: MR brain 03/11/2022. Findings: Images are mild to moderately degraded by patient motion related artifact. IAC: The 5th, 7th and 8th cranial nerve complexes are intact. No abnormal signal. No cerebellopontine angle mass or mass effect. There is normal T2 signal present within the visualized inner ear structures. Brain: Mild thinning of the corpus callosum. The pituitary gland clivus appear intact. Mild degenerative change visualized upper cervical spine. There is no restricted diffusion. No intracranial hemorrhage. The ventricles are proportionate to the cerebral sulci. The 4th ventricle appears midline. The basal cisterns appear patent. No abnormal extra-axial fluid collection identified. Moderate parenchymal volume loss. Progressed severe T2 FLAIR hyperintense foci within the subcortical and periventricular white matter, favored to represent chronic ischemic microvascular disease. There is no intracranial mass, abnormal mass-effect or midline shift identified. Major intracranial vascular flow voids appear grossly intact. Thinning of the ocular lenses. Impression: 1. The 5th, 7th and 8th cranial nerve complexes are intact. No cerebellopontine angle mass or mass effect. 2. No acute/subacute infarct. 3. Progressed severe chronic ischemic microvascular disease. Dictated by Walter Vogt MD @ 11/01/2024 2:16:16 PM (Electronically Signed)
== END 2024-10-31 13:36 | disposition home or self-care (01) ==
LOC: MRI 13:36
PROVIDERS: PCP Family Medicine; Visit Provider Otolaryngology
DX: H91.92 Unspecified hearing loss, left ear (principal); I67.82 Cerebral ischemia
CPT/HCPCS: 70553; A9575

== ENCOUNTER 2025-02-25 15:03 | Outpatient (CLI) | payer MEDICARE, SELFPAY | END 2025-02-25 15:04 | disposition home or self-care (01) | LOC: LKVREF 15:04 | PROVIDERS: PCP Family Medicine; Visit Provider Family Medicine | DX: E03.9 Hypothyroidism, unspecified (principal) | CPT/HCPCS: 84439; 84443 ==